=== PATIENT | male | born 1930 | race Caucasian/White ===

== ENCOUNTER 2016-06-02 05:55 | Inpatient (IN) | payer MEDICARE ==
[2016-06-02] VITALS (11 sets, daily range): BP systolic 153–220; BP diastolic 70–122; PULSE 67–101; RESP 16–18; TEMP 97.7–98.6; O2SAT 94–98
[~2016-06-02 05:55] MED LIST: 1-ME1LIQ OR; ASPI325T PO; CALC0.25 PO; DIPH25 PO; DONE10TA14; GABA100C4 PO; HYDR-3533 PO; HYDR50TA15 PO; LIPI80TA16 PO; NITR0.4S SL; OMEG100010; PROBCAP4 PO; SERT50 PO; TAMS0.4C67 PO; TRAM50TA PO; VITA10002 PO; [UNRECOGNIZED DRUG - CODE] SQ
--- NOTE | 2016-06-02 06:03 | PD ---
HPI Chief Complaint: coffee ground emesis Time Seen by Provider: 06:03 Travel History International Travel<30 days: No Contact w/Intl Traveler<30days: No Traveled to known affect area: No History of Present Illness HPI 86-year-old male came to the emergency room brought by EMS from intermediate for coffee-ground emesis. Patient has significant dementia. He is unable to give any kind of meaningful history. 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 Today he was noticed to be vomiting coffee- ground emesis. Patient has his eyes closed and responding to painful stimuli both verbal profanity. He was hypertensive upon arrival. He has jaiden on his anterior abdominal wall and ecchymosis on both arms from probably the IV. Patient is not able to give any meaningful history. But looks distressed. PFSH Past Medical History Narrative Medical List of his past medical history as reviewed from the nursing note. Arthritis: Yes (HANDS) Asthma: No Blood Disorders: No Heart Rhythm Problems: No Cancer: Yes (SKIN) Cardiovascular Problems: Yes (S/P MA--STENTS x1) High Cholesterol: No Chest Pain: No Congestive Heart Failure: No COPD: No Diabetes: Yes (borderline) Endocrine: Yes GERD: No Genitourinary: No Hepatitis: No Hiatal Hernia: No Hypertension: No Immune Disorder: No Kidney Stones: No Musculoskeletal: Yes (arthritis in the hands ) Neurologic: No Psychiatric: Yes (zoloft taken for anxiety depression) Reproductive: No Respiratory: No Myocardial Infarction: No Renal Failure: No Sleep Apnea: No Thyroid Disease: No Ulcer: No Past Surgical History Abdominal Surgery: Yes (LAP. VIKTORIA, APPY) AICD: No Appendectomy: No Body Medical Devices: x2 stents, right hip Cardiac Surgery: Yes (cardiac stent ) Cholecystectomy: Yes Ear Surgery: No Endocrine Surgery: No Eye Surgery: No Genitourinary Surgery: Yes (stent placed near the right kidney) Gynecologic Surgery: No Joint Replacement: Yes (RIGHT HIP) Oral Surgery: Yes (tonsillectomy) Pacemaker: No Thoracic Surgery: No Social History Alcohol Use: Yes (SOCIALLY / BEER) Tobacco Use: No Substance Use: No Allergies-Medications (Allergen,Severity, Reaction): Coded Allergies: Penicillin (Verified Allergy, Severe, 06/02/16) unknown reaction Dyazide (Verified Allergy, Unknown, UNKNOWN, 06/02/16) Uncoded Allergies: DYASIDE (Allergy, Intermediate, unknown, 05/21/15) Comments List of his allergies reviewed from the nursing note. Reported Meds & Prescriptions Reported Meds & Active Scripts Active Reported Labetalol (Labetalol HCl) 100 Mg Tab 100 Mg PO BID Hydralazine (Hydralazine HCl) 50 Mg Tab 100 Mg PO TID Take with a meal Gabapentin 300 Mg Cap 300 Mg PO TID Sertraline (Sertraline HCl) 50 Mg Tab 75 Mg PO DAILY Clonidine (Clonidine HCl) 0.1 Mg Tab 0.1 Mg PO BID Aspirin 81 (Aspirin) 81 Mg Tabdr 81 Mg PO DAILY Diphenhydramine HCl (Diphenhydramine HCl (Sleep)) 50 Mg Tab 25 Mg PO DAILY Primidone 50 Mg Tab 50 Mg PO BID Calcitriol 0.25 Mcg Cap 0.25 Mcg PO DAILY Amlodipine (Amlodipine Besylate) 5 Mg Tab 5 Mg PO DAILY Donepezil 10 Mg Tab 10 Mg PO HS Tamsulosin (Tamsulosin HCl) 0.4 Mg Cap 0.4 Mg PO HS Risperidone 0.25 Mg Tab 0.25 Mg PO Q12HR Atorvastatin (Atorvastatin Calcium) 20 Mg Tab 20 Mg PO HS Narrative Medication List of his home medications reviewed from the nursing note. Review of Systems Except as stated in HPI: all other systems reviewed are Neg Physical Exam Narrative GENERAL: Elderly, dementia, mostly noncommunicative SKIN: Warm and dry. Dry and flaky skin with ecchymosis mostly on both upper extremities. Postsurgical wound on the anterior abdominal wall with jaiden intact. Some redness but no discharge. HEAD: Atraumatic. Normocephalic. EYES: Pupils equal and round. No scleral icterus. No injection or drainage. ENT: No nasal bleeding or discharge. Mucous membranes pink and moist. NECK: Trachea midline. No JVD. CARDIOVASCULAR: Regular rate and rhythm. No murmur appreciated. RESPIRATORY: No accessory muscle use. Clear to auscultation. Breath sounds equal bilaterally. GASTROINTESTINAL: Abdomen is distended but soft, decreased bowel sounds, no guarding. Hepatic and splenic margins not palpable. MUSCULOSKELETAL: No obvious deformities. No clubbing. No cyanosis. No edema. NEUROLOGICAL: Dementia. GCS of 12. No obvious cranial nerve deficits. Motor grossly within normal limits. Mostly noncommunicative although responding to painful stimuli with verbal profanities PSYCHIATRIC: Unable to assess Data Data Last Documented VS Vital Signs Date Time Temp Pulse Resp B/P Pulse Ox O2 Delivery O2 Flow Rate FiO2 06/02/16 07:15 76 18 155/79 98 Nasal Cannula 2 06/02/16 05:59 98.2 Orders Complete Blood Count With Diff (06/02/16 06:39) Comprehensive Metabolic Panel (06/02/16 06:39) Lipase (06/02/16 06:39) Prothrombin Time / Inr (Pt) (06/02/16 06:39) Urinalysis - C+S If Indicated (06/02/16 06:39) Type And Screen (06/02/16 06:39) Ecg Monitoring (06/02/16 06:39) Iv Access Insert/Monitor (06/02/16 06:39) Oximetry (06/02/16 06:39) Sodium Chlor 0.9% 1000 Ml Inj (Ns 1000 M (06/02/16 06:39) Sodium Chloride 0.9% Flush (Ns Flush) (06/02/16 06:45) Pantoprazole Inj (Protonix Inj) (06/02/16 06:45) Pantoprazole Inj (Protonix Inj) (06/02/16 06:45) Ct Abd/Pel W/O Iv Contrast (06/02/16 ) Troponin I (06/02/16 06:54) Electrocardiogram (06/02/16 06:02) Admit Order (Ed Use Only) (06/02/16 08:31) Diet Npo (06/02/16 Breakfast) Vital Signs (Adult) NABEEL.Q4H (06/02/16 08:30) Hemoglobin (Hgb) (06/02/16 14:00) Hematocrit (Hct) (06/02/16 14:00) Hemoglobin (Hgb) (06/02/16 20:00) Hematocrit (Hct) (06/02/16 20:00) Hemoglobin (Hgb) (06/03/16 06:00) Hematocrit (Hct) (06/03/16 06:00) Basic Metabolic Panel (Bmp) (06/03/16 06:00) Sodium Chlor 0.9% 1000 Ml Inj (Ns 1000 M (06/02/16 08:30) Ondansetron Inj (Zofran Inj) (06/02/16 08:30) Amlodipine (Norvasc) (06/02/16 09:00) Donepezil (Aricept) (06/02/16 21:00) Gabapentin (Neurontin) (06/02/16 09:00) Oxycodone-Acetamin 5-325 Mg (Percocet (06/02/16 08:45) Primidone (Mysoline) (06/02/16 09:00) Risperidone (Risperdal) (06/02/16 09:00) Sertraline (Zoloft) (06/02/16 09:00) Tamsulosin (Flomax) (06/02/16 21:00) Labs Laboratory Tests Test 06/02/16 06:50 White Blood Count 7.4 TH/MM3 Red Blood Count 3.75 MIL/MM3 Hemoglobin 11.7 GM/DL Hematocrit 34.8 % Mean Corpuscular Volume 92.8 FL Mean Corpuscular Hemoglobin 31.1 PG Mean Corpuscular Hemoglobin 33.5 % Concent Red Cell Distribution Width 16.7 % Platelet Count 178 TH/MM3 Mean Platelet Volume 8.7 FL Neutrophils (%) (Auto) 89.5 % Lymphocytes (%) (Auto) 4.4 % Monocytes (%) (Auto) 4.1 % Eosinophils (%) (Auto) 1.3 % Basophils (%) (Auto) 0.7 % Neutrophils # (Auto) 6.6 TH/MM3 Lymphocytes # (Auto) 0.3 TH/MM3 Monocytes # (Auto) 0.3 TH/MM3 Eosinophils # (Auto) 0.1 TH/MM3 Basophils # (Auto) 0.1 TH/MM3 CBC Comment DIFF FINAL Differential Comment Prothrombin Time 11.4 SEC Prothromb Time International 1.0 RATIO Ratio Sodium Level 146 MEQ/L Potassium Level 3.8 MEQ/L Chloride Level 113 MEQ/L Carbon Dioxide Level 22.8 MEQ/L Anion Gap 10 MEQ/L Blood Urea Nitrogen 31 MG/DL Creatinine 2.09 MG/DL Estimat Glomerular Filtration 30 ML/MIN Rate Random Glucose 200 MG/DL Calcium Level 8.9 MG/DL Total Bilirubin 0.5 MG/DL Aspartate Amino Transf 26 U/L (AST/SGOT) Alanine Aminotransferase 21 U/L (ALT/SGPT) Alkaline Phosphatase 99 U/L Troponin I 0.19 NG/ML Total Protein 6.8 GM/DL Albumin 3.5 GM/DL Lipase 179 U/L Blood Type O NEGATIVE Antibody Screen NEGATIVE Blood Bank Comment MDM Medical Decision Making Medical Screen Exam Complete: Yes Emergency Medical Condition: Yes Medical Record Reviewed: Yes Interpretation(s) Twelve-lead EKG was reviewed by me. Normal sinus rhythm, left axis deviation, old anterior and inferior MA. Heart rate of 90 bpm. Differential Diagnosis GI bleed, peptic ulcer disease, stress ulcer Narrative Course 6:53 AM awaiting for the blood test results to come back. I waiting for the CAT scan to be done and resulted. In my opinion, this is upper GI bleed, probably as stress ulcer/gastritis for me hospitalization and recent surgery. I have started the patient on Protonix bolus and drip. Case will be signed over to the oncoming ER physician. Patient will require hospitalization eventually. Scripts Oxycodone-Acetaminophen 5-325 mg Tab1 Tab PO Q4H PRN (PAIN) #15 TAB Ref 0 Prov:Emanuel Pavon MD 06/04/16 Lui Kee MD Jun 02, 2016 06:03
[2016-06-02] MEDS ORDERED: DONE10TA7 PO (06:26)
[2016-06-02] MEDS ORDERED: LABE100T2 PO (06:26)
[2016-06-02] MEDS ORDERED: OXYC1TAB63 PO (06:26)
[2016-06-02] MEDS ORDERED: AMLO5TAB2 PO (06:26)
[2016-06-02] MEDS ORDERED: CLON0.1T PO (06:26)
[2016-06-02] MEDS ORDERED: TAMS0.4C4 PO (06:26)
[2016-06-02] MEDS ORDERED: DIPH50TA3 PO (06:26)
[2016-06-02] MEDS ORDERED: RISP0.252 PO (06:26)
[2016-06-02] MEDS ORDERED: ATOR20TA15 PO (06:26)
[2016-06-02] MEDS ORDERED: ASPI-110 PO (06:26)
[2016-06-02] MEDS ORDERED: SERT-132 PO (06:26)
[2016-06-02] MEDS ORDERED: CALC0.25 PO (06:26)
[2016-06-02] MEDS ORDERED: PRIM50TA5 PO (06:26)
[2016-06-02] MEDS ORDERED: HYDR50TA15 PO (06:26)
[2016-06-02] MEDS ORDERED: GABA300C5 PO (06:26)
[2016-06-02] MEDS ORDERED: SODIUM CHLOR 0.9% 1000 ML INJ 1,000 ML IV SCH (06:39)
[2016-06-02] MEDS ORDERED: SODIUM CHLORIDE 0.9% FLUSH 5 ML FLUSH IVF PRN (06:45)
[2016-06-02] MEDS ORDERED: PANTOPRAZOLE INJ 80 MG in SODIUM CHLORIDE 0.9% INJ 35 ML IV ONE (06:45)
[2016-06-02 07:18] LABS: AUTOMATED NEUTROPHIL # 6.6 TH/MM3 (1.8-7.7); BASOPHIL # 0.1 TH/MM3 (0-0.2); BASOPHIL % 0.7 % (0.0-2.0); EOSINOPHIL # 0.1 TH/MM3 (0-0.4); EOSINOPHIL % 1.3 % (0.0-4.0); HEMATOCRIT 34.8 % (39.0-51.0); HEMO FLAGS DIFF FINAL; LYMPH % 4.4 % (9.0-44.0); LYMPHOCYTE # 0.3 TH/MM3 (1.0-4.8); MEAN CELL VOLUME 92.8 FL (80.0-100.0); MEAN CORPUSCULAR HEMOGLOBIN 31.1 PG (27.0-34.0); MEAN CORPUSCULAR HGB CONC 33.5 % (32.0-36.0); MONO % 4.1 % (0.0-8.0); NEUT % 89.5 % (16.0-70.0); PLATELET COUNT 178 TH/MM3 (150-450); RED BLOOD COUNT 3.75 MIL/MM3 (4.50-5.90); RED CELL DISTRIBUTION WIDTH 16.7 % (11.6-17.2); WHITE BLOOD COUNT 7.4 TH/MM3 (4.0-11.0)
[2016-06-02 07:29] LABS: PROTHROMBIN TIME - PATIENT 11.4 SEC (9.8-11.6)
[2016-06-02 07:32] LABS: ALT (GPT) 21 U/L (12-78); ANION GAP 10 MEQ/L (5-15); AST (GOT) 26 U/L (15-37); BICARBONATE 22.8 MEQ/L (21.0-32.0); BLOOD UREA NITROGEN 31 MG/DL (7-18); CHLORIDE 113 MEQ/L (98-107); GLOMERULAR FILTRATION RATE 30 ML/MIN (>89); POTASSIUM 3.8 MEQ/L (3.5-5.1); SODIUM (NA) 146 MEQ/L (136-145)
[2016-06-02 07:34] LABS: ALKALINE PHOSPHATASE 99 U/L (45-117); TOTAL BILIRUBIN ADULT 0.5 MG/DL (0.2-1.0)
--- NOTE | 2016-06-02 07:41 | RADRPT ---
EXAM DATE/TIME: 06/02/2016 07:17 [place] COMPARISON: HIP RIGHT (AP & LAT), December 13, 2014, 14:56. INDICATIONS : Vomiting coffee ground emesis; status post hemicolectomy one week ago. ORAL CONTRAST: No oral contrast ingested. RADIATION DOSE: 12.32 CTDIvol (mGy) MEDICAL HISTORY : Cardiovascular disease. SURGICAL HISTORY : Cholecystectomy. Appendectomy. ENCOUNTER: Initial ACUITY: 1 day PAIN SCALE: Non-responsive LOCATION: abdomen. TECHNIQUE: Volumetric scanning of the abdomen and pelvis was performed. Using automated exposure control and ad justment of the mA and/or kV according to patient size, radiation dose was kept as low as reasonably achievable to obtain optimal diagnostic quality images. FINDINGS: Lung bases demonstrate small bilateral pleural effusions, larger on the right side with basilar atele ctasis. No pneumothorax. There is subcutaneous air in the lower left chest wall and the abdominal wall likely related to repor dada recent hemicolectomy one week ago. Surgical staple line seen in the right abdomen. There is also previous cholecystectomy. There is no evidence for bowel obstruction. There is mild constipation. No free air is present. There is mild anasarca. Trace free fluid in the abdomen. No significant abnormality in the liver, spleen, adrenals, right kidney or pancreas. Numerous exophyt ic cysts present in the left kidney with a dilated left renal pelvis. Left ureter otherwise has shani l caliber. Examination the pelvis reveals a inferior pubic ramus fracture which appears old. There is previous r ight hip replacement with protrusio acetabulum and some fragmentation of the acetabulum. This appears grossly similar to a previous right hip radiograph from November 2014. CONCLUSION: 1. Small hiatal hernia. No significant gastric distention. No bowel obstruction or free air. Mild con stipation. 2. Small bilateral pleural effusions. Basilar atelectasis. Mild anasarca. 3. 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 Old right inferior pubic ramus fracture. Findings similar to plain film from November 2014. Bones are osteopenic. Postoperative right hemicolectomy. Subcutaneous air in the left chest wall and left abdominal wall. Arthur Mixon MD on June 02, 2016 at 7:29 Board Certified Radiologist. This report was verified electronically.
[2016-06-02] MEDS: PANTOPRAZOLE INJ 80 MG in SODIUM CHLORIDE 0.9% INJ 100 ML IV SCH ×2 (07:55→17:22)
[2016-06-02] MEDS ORDERED: ONDANSETRON HCL 4 MG/2 ML VIAL IV PUSH PRN (08:30)
[2016-06-02] MEDS ORDERED: oxyCODONE/ACETAMINOPHEN 5 MG/325 MG TAB PO PRN (08:45)
[2016-06-02] MEDS: amLODIPine BESYLATE 5 MG TAB PO SCH (09:00)
[2016-06-02] MEDS: PRIMIDONE 50 MG TAB PO SCH ×2 (09:00→20:38)
[2016-06-02] MEDS: risperiDONE 0.25 MG TAB PO SCH ×2 (09:00→20:39)
[2016-06-02] MEDS: GABAPENTIN 300 MG CAP PO SCH ×3 (09:00→17:13)
[2016-06-02] MEDS: SERTRALINE HCL 50 MG TAB PO SCH (09:00)
[2016-06-02] MEDS ORDERED: PILL SPLITTER OTHER PRN (09:15)
[2016-06-02] MEDS: SODIUM CHLOR 0.9% 1000 ML INJ 1,000 ML IV SCH ×2 (10:39→21:50)
[2016-06-02 11:09] LABS: BACTERIA, URINE RARE /hpf; BLOOD, URINE NEG (NEG); COMMENT (UR) CULT NOT INDICATED; CULTURE IF INDICATED CULT NOT INDICATED; GLUCOSE,URINE 150 mg/dL (NEG); KETONE, URINE TRACE mg/dL (NEG); NITRITE,URINE NEG (NEG); URINE COLOR YELLOW (YELLW/STRAW)
--- NOTE | 2016-06-02 11:32 | HHI.HP ---
[facility] Angelica Rhodes DO Admission Diagnosis upper gi bleed Diagnoses: (1) GI bleed Diagnosis: Principal Chief Complaint: coffee-ground emesis Travel History International Travel<30 Days: No Contact w/Intl Traveler <30 Da: No Traveled to Known Affected Are: No History of Present Illness patient is a 86 y/o male with severe dementia- s/p recent colectomy was sent back to ER with coffee-ground emesis- information is limited due to severe dementia. at the time of my evaluation he was in no acute distress. opened the eyes to calling his name but otherwise couldn't get any further information. Review of Systems ROS Limitations: Poor Historian Past Family Social History Past Medical History hypertension dyslipidemia colon cancer? Past Surgical History recent colectomy Reported Medications Labetalol (Labetalol HCl) 100 Mg Tab 100 Mg PO BID Hydralazine (Hydralazine HCl) 50 Mg Tab 100 Mg PO TID Take with a meal Gabapentin 300 Mg Cap 300 Mg PO TID Sertraline (Sertraline HCl) 50 Mg Tab 75 Mg PO DAILY Clonidine (Clonidine HCl) 0.1 Mg Tab 0.1 Mg PO BID Aspirin 81 (Aspirin) 81 Mg Tabdr 81 Mg PO DAILY Diphenhydramine HCl (Diphenhydramine HCl (Sleep)) 50 Mg Tab 25 Mg PO DAILY Primidone 50 Mg Tab 50 Mg PO BID Calcitriol 0.25 Mcg Cap 0.25 Mcg PO DAILY Amlodipine (Amlodipine Besylate) 5 Mg Tab 5 Mg PO DAILY Donepezil 10 Mg Tab 10 Mg PO HS Tamsulosin (Tamsulosin HCl) 0.4 Mg Cap 0.4 Mg PO HS Oxycodone-Acetaminophen 5-325 mg Tab 1 Tab PO Q4H PRN Risperidone 0.25 Mg Tab 0.25 Mg PO Q12HR Atorvastatin (Atorvastatin Calcium) 20 Mg Tab 20 Mg PO HS Allergies: Coded Allergies: Penicillin (Verified Allergy, Severe, 06/02/16) unknown reaction Dyazide (Verified Allergy, Unknown, UNKNOWN, 06/02/16) Uncoded Allergies: DYASIDE (Allergy, Intermediate, unknown, 05/21/15) Active Ordered Medications Current Medications Sodium Chloride (NS 1000 ml Inj) 1,000 ml @ 1,000 mls/hr Q1H IV Last administered on 06/02/16 07:55; Start 06/02/16 at 06:39; Stop 06/02/16 at 07:38; Status DC IV Flush 2 ml 2 ml UNSCH PRN IVF FLUSH AFTER USING IV ACCESS; Start 06/02/16 at 06:45 Pantoprazole Sodium 80 mg/ Sodium Chloride 35 ml @ 420 mls/hr ONCE ONCE IV Last administered on 06/02/16 07:55; Start 06/02/16 at 06:45; Stop 06/02/16 at 06: 49; Status DC Pantoprazole Sodium 80 mg/ Sodium Chloride 100 ml @ 10 mls/hr Q10H IV Last administered on 06/02/16 07:55; Start 06/02/16 at 06:45 Sodium Chloride (NS 1000 ml Inj) 1,000 ml @ 75 mls/hr [id number] IV Last administered on 06/02/16 10:39; Start 06/02/16 at 08:30 Ondansetron HCl (Zofran Inj) 4 mg Q8HR PRN IV PUSH NAUSEA; Start 06/02/16 at 08: 30 Amlodipine Besylate (Norvasc) 5 mg DAILY PO ; Start 06/02/16 at 09:00 Donepezil HCl (Aricept) 10 mg HS PO ; Start 06/02/16 at 21:00 Gabapentin (Neurontin) 300 mg TID PO ; Start 06/02/16 at 09:00 Oxycodone/ Acetaminophen (Percocet 5-325 Mg) 1 tab Q4H PRN PO PAIN; Start 06/02 at 08:45 Primidone (Mysoline) 50 mg BID PO ; Start 06/02/16 at 09:00 Risperidone (risperDAL) 0.25 mg Q12HR PO ; Start 06/02/16 at 09:00 Sertraline HCl (Zoloft) 75 mg DAILY PO ; Start 06/02/16 at 09:00 Tamsulosin HCl (Flomax) 0.4 mg HS PO ; Start 06/02/16 at 21:00 Miscellaneous (Pill Splitter) 1 ea UNSCH PRN OTHER SEE LABEL COMMENTS; Start at 09:15 Family History could not be obtained. Social History [facility] resident. Physical Exam Vital Signs Vital Signs Date Time Temp Pulse Resp B/P Pulse Ox O2 Delivery O2 Flow Rate FiO2 06/02/16 11:09 98.6 70 16 198/91 98 Nasal Cannula 2 06/02/16 09:00 78 18 153/76 98 Nasal Cannula 2 06/02/16 07:15 76 18 155/79 98 Nasal Cannula 2 06/02/16 06:27 101 18 180/88 94 Room Air 06/02/16 05:59 98.2 101 18 220/122 95 Physical Exam GENERAL: elderly male, in no apparent distress. SKIN: No rashes, ecchymoses or lesions. Cool and dry. HEAD: Atraumatic. Normocephalic. No temporal or scalp tenderness. EYES: Pupils equal round and reactive. Extraocular motions intact. No scleral icterus. No injection or drainage. ENT: Nose without bleeding, purulent drainage or septal hematoma. Throat without erythema, tonsillar hypertrophy or exudate. Uvula midline. Airway patent. NECK: Trachea midline. No JVD or lymphadenopathy. Supple, nontender, no meningeal signs. CARDIOVASCULAR: Regular rate and rhythm without murmurs, gallops, or rubs. RESPIRATORY: Clear to auscultation. Breath sounds equal bilaterally. No wheezes , rales, or rhonchi. GASTROINTESTINAL: jaiden noted on the abdomen MUSCULOSKELETAL: Extremities without clubbing, cyanosis, or edema. No joint tenderness, effusion, or edema noted. No calf tenderness. Negative Homans sign bilaterally. NEUROLOGICAL: demented Laboratory Laboratory Tests Test 06/02/16 06/02/16 06:50 10:55 White Blood Count 7.4 Red Blood Count 3.75 Hemoglobin 11.7 Hematocrit 34.8 Mean Corpuscular Volume 92.8 Mean Corpuscular Hemoglobin 31.1 Mean Corpuscular Hemoglobin 33.5 Concent Red Cell Distribution Width 16.7 Platelet Count 178 Mean Platelet Volume 8.7 Neutrophils (%) (Auto) 89.5 Lymphocytes (%) (Auto) 4.4 Monocytes (%) (Auto) 4.1 Eosinophils (%) (Auto) 1.3 Basophils (%) (Auto) 0.7 Neutrophils # (Auto) 6.6 Lymphocytes # (Auto) 0.3 Monocytes # (Auto) 0.3 Eosinophils # (Auto) 0.1 Basophils # (Auto) 0.1 CBC Comment DIFF FINAL Differential Comment Prothrombin Time 11.4 Prothromb Time International 1.0 Ratio Sodium Level 146 Potassium Level 3.8 Chloride Level 113 Carbon Dioxide Level 22.8 Anion Gap 10 Blood Urea Nitrogen 31 Creatinine 2.09 Estimat Glomerular Filtration 30 Rate Random Glucose 200 Calcium Level 8.9 Total Bilirubin 0.5 Aspartate Amino Transf 26 (AST/SGOT) Alanine Aminotransferase 21 (ALT/SGPT) Alkaline Phosphatase 99 Troponin I 0.19 Total Protein 6.8 Albumin 3.5 Lipase 179 Blood Type O NEGATIVE Antibody Screen NEGATIVE Blood Bank Comment Urine Color YELLOW Urine Turbidity CLEAR Urine pH 6.0 Urine Specific [place] 1.011 Urine Protein 100 Urine Glucose (UA) 150 Urine Ketones TRACE Urine Occult Blood NEG Urine Nitrite NEG Urine Bilirubin NEG Urine Urobilinogen LESS THAN 2.0 Urine Leukocyte Esterase NEG Urine RBC LESS THAN 1 Urine WBC LESS THAN 1 Urine Bacteria RARE Microscopic Urinalysis Comment CULT NOT INDICATED Result Diagram: 06/02/16 0650 06/02/16 0650 Imaging Last Impressions Abdomen/Pelvis CT 06/02/16 0000 Signed Impressions: Service Date/Time: June 07:17 - CONCLUSION: 1. Small hiatal hernia. No significant gastric distention. No bowel obstruction or free air. Mild constipation. 2. Small bilateral pleural effusions. Basilar atelectasis. Mild anasarca. 3. 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 Old right inferior pubic ramus fracture. Findings similar to plain film from November 2014. Bones are osteopenic. Postoperative right hemicolectomy. Subcutaneous air in the left chest wall and left abdominal wall. rAthur Mixon MD Assessment and Plan Assessment and Plan A/P - GI bleed with recent colectomy keep NPO for now- start IV fluid- continue PPI. monitor H/H and transfuse as needed- GI consulted -elevated troponin- due to renal insufficiency- will check the trend- -hypertension; reportedly could not take the oral pills- will add vasotec as needed -renal insufficiency- chronic and at his baseline- will monitor -dementia- resume home meds if able to take -DVT prophylaxis with SCD's- no chemical prophylaxis due to GI bleed called the to discuss the code status and possible palliative care evaluation- no answer. Discussed Condition With the ER physician and the RN. Physician Certification 2 Midnight Certification Type: Admission for Inpatient Services Order for Inpatient Services The services are ordered in accordance with Medicare regulations or non- Medicare payer requirements, as applicable. In the case of services not specified as inpatient-only, they are appropriately provided as inpatient services in accordance with the 2-midnight benchmark. Estimated LOS (days): 2 days is the estimated time the patient will need to remain in the hospital, assuming treatment plan goals are met and no additional complications. Post-Hospital Plan: Not yet determined Problem Qualifiers (1) GI bleed: Qualified Code: K92.0 - Gastrointestinal hemorrhage with hematemesis Emanuel Pavon MD Jun 02, 2016 11:32
--- NOTE | 2016-06-02 11:46 | HHI.PR ---
Addendum To [facility] Progress Not Reason for addendum: Additonal documentation (d/w the in detail; will cancel GI consult and will consult palliative care- DNR status per my discussion with the .) Emanuel Pavon MD Jun 02, 2016 11:46
[2016-06-02] MEDS: ENALAPRILAT 1.25 MG/ML VIAL IV PUSH PRN (12:55)
--- NOTE | 2016-06-02 14:46 | PD.CONS ---
Consult Service Palliative Care Consult Requested By Dr. Pavon . Primary Care Physician Angelica Rhodes DO . Reason for Consultation a. To assist with evaluation and management of symptoms including: Agitation, confusion b. To assist medical decision maker(s) with: better understanding of current medical conditions; weighing benefits/burdens of medical treatment options; making medical treatment decisions. . HPI History of Present Illness This 86-year-old male, with a past history of dementia for 3 or 4 years, CAD/[place] , and a subtotal colectomy last month for colon cancer, was brought to the emergency department from his rehabilitation facility after he had hematemesis, coffee grounds emesis. The patient had been declining for the past year to year and a half with some gradually worsening weakness, and he had a fall in 2014 that resulted in a pelvis fracture. He had a colonoscopy 2 or 3 months ago and was found to have a colon mass/neoplasm, and he was taken to [facility] last month for surgery. He was discharged to the rehabilitation facility 2 days ago, but then developed this hematemesis and was brought to the emergency department. In the emergency department, findings included: * Confusion, intermittent agitation * Temp 98.2, pulse 101, respirations 18, blood pressure 180/88, oxygen saturation 94% on room air * White count 7.4, hemoglobin 11.7 * Sodium 146, creatinine 2.09, albumin 3.5 * CT of abdomen/pelvis indicated some small pleural effusions but no other acute findings. The patient had been evaluated by [facility] to 3 months ago, and the patient's did not feel she was "ready for that yet." The patient was provided Protonix and IV fluids, and was admitted to the medical floor. He remains quite confused, and intermittently has agitation and yells out. He does not appear to be in pain while he is resting in the bed. Dr. Pavon discussed with the patient's his condition, and she elected to initiate a DNR. Her goal is to get him stable enough here so he can return to rehabilitation and then hopefully get back home. Palliative Care was consulted to assist with symptom management, and to discuss with the the current condition, prognosis, and the benefits and burdens of the various treatment options. . Function/Cognitive Trajectory Prior to his admission to [facility] last month, the patient was able to get up and walk several steps with his walker at home. He was always confused, and he had occasional agitated outbursts at home. . Review of Systems ROS Limitations: Altered Mental Status (confused from dementia) Constitutional: DENIES: Weight loss Endocrine: DENIES: Polyuria Eyes: DENIES: Eye inflammation Ears, nose, mouth, throat: DENIES: Epistaxis Respiratory: DENIES: Cough, Shortness of breath Cardiovascular: DENIES: Syncope, Lower Extremity Edema Gastrointestinal: COMPLAINS OF: Vomiting, Vomiting blood, DENIES: Bloody stools, Diarrhea Genitourinary: DENIES: Hematuria Musculoskeletal: DENIES: Joint Swelling Integumentary: DENIES: Rash Hematologic/Lymphatics: DENIES: Bruising Immunologic/Allergic: DENIES: Urticaria Neurologic: DENIES: Localized weakness, Seizures Psychiatric: COMPLAINS OF: Confusion, Agitation Past Family Social History Coded Allergies: Penicillin (Verified Allergy, Severe, 06/02/16) unknown reaction Dyazide (Verified Allergy, Unknown, UNKNOWN, 06/02/16) Uncoded Allergies: DYASIDE (Allergy, Intermediate, unknown, 05/21/15) Past Medical History * Hematemesis, GI bleeding * Colon cancer, subtotal colectomy May 2016 * CAD, history of [place] 2008 * Chronic kidney disease, possible [place] I * Hypertension * Diabetes * Skin cancer * Depression * Hyperlipidemia . Past Surgical History * Subtotal colectomy for cancer in May 2016 * Right hip * Dupuytren's contractures * Cholecystectomy * Tonsillectomy * Stent right kidney . Reported Medications Labetalol (Labetalol HCl) 100 Mg Tab 100 Mg PO BID Hydralazine (Hydralazine HCl) 50 Mg Tab 100 Mg PO TID Gabapentin 300 Mg Cap 300 Mg PO TID Sertraline (Sertraline HCl) 50 Mg Tab 75 Mg PO DAILY Clonidine (Clonidine HCl) 0.1 Mg Tab 0.1 Mg PO BID Aspirin 81 (Aspirin) 81 Mg Tabdr 81 Mg PO DAILY Diphenhydramine HCl (Diphenhydramine HCl (Sleep)) 50 Mg Tab 25 Mg PO DAILY Primidone 50 Mg Tab 50 Mg PO BID Calcitriol 0.25 Mcg Cap 0.25 Mcg PO DAILY Amlodipine (Amlodipine Besylate) 5 Mg Tab 5 Mg PO DAILY Donepezil 10 Mg Tab 10 Mg PO HS Tamsulosin (Tamsulosin HCl) 0.4 Mg Cap 0.4 Mg PO HS Oxycodone-Acetaminophen 5-325 mg Tab 1 Tab PO Q4H PRN Risperidone 0.25 Mg Tab 0.25 Mg PO Q12HR Atorvastatin (Atorvastatin Calcium) 20 Mg Tab 20 Mg PO HS . Current Medications Medications (Trade) Dose Ordered Sig/Rebecca Route Start Time Stop Time Status Last Admin IV Flush 2 ml 2 ml UNSCH PRN IVF 06/02/16 06:45 Pantoprazole Sodium 80 mg/ Sodium Chloride 100 ml @ 10 mls/hr Q10H IV 06/02/16 06:45 06/02/16 07:55 (NS 1000 ml Inj) 1,000 ml @ 75 mls/hr [id number] IV 06/02/16 08:30 06/02/16 10:39 (Zofran Inj) 4 mg Q8HR PRN IV PUSH 06/02/16 08:30 (Norvasc) 5 mg DAILY PO 06/02/16 09:00 (Aricept) 10 mg HS PO 06/02/16 21:00 (Neurontin) 300 mg TID PO 06/02/16 09:00 (Percocet 5-325 Mg) 1 tab Q4H PRN PO 06/02/16 08:45 (Mysoline) 50 mg BID PO 06/02/16 09:00 (risperDAL) 0.25 mg Q12HR PO 06/02/16 09:00 (Zoloft) 75 mg DAILY PO 06/02/16 09:00 (Flomax) 0.4 mg HS PO 06/02/16 21:00 (Pill Splitter) 1 ea UNSCH PRN OTHER 06/02/16 09:15 (Vasotec Inj) 1.25 mg Q8H PRN IV PUSH 06/02/16 11:30 06/02/16 12:55 Family History Positive for heart disease. Parental deaths unknown cause. . Substance Use Tobacco: None. Alcohol: None. Prescription med abuse: None. Illicits: None. . Psychosocial History The patient was born and raised in [place], but moved to [place] more than 50 years ago. 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 He has been once, currently for 29 years. He has no children. He lives at home with his , but the couple days prior to this admission had been at the rehabilitation facility after his colon surgery last month. . Spiritual/Cultural Factors The patient is Zoroastrian, and was connected with a local Zoroastrian buddhist until his health began failing more about 1.5 years ago. The patient's would like a commercial loan administrator to come visit the patient. . Living Will: Completed, but not made available Family/friends goals: The patient's is hoping that he will stabilize quickly here and be able to get back to his rehab center where he can receive therapy and hopefully get strong enough to return back home to live with her. If the patient declines, the patient's is open to hospice services, and she certainly would not want him resuscitated or on life support. . Ethical and Legal Issues The patient lacks capacity for decision making, and he will not regain that capacity. His is the proxy decision-maker. There are no ethical issues that would impact his care or decision-making at this time. . Physical Exam Vital Signs Date Time Temp Pulse Resp B/P Pulse Ox O2 Delivery O2 Flow Rate FiO2 06/02/16 13:56 166/94 06/02/16 13:38 97.7 84 18 196/91 95 06/02/16 12:54 67 16 201/90 98 Nasal Cannula 2 06/02/16 11:53 73 16 171/75 98 Nasal Cannula 2 06/02/16 11:09 98.6 70 16 198/91 98 Nasal Cannula 2 06/02/16 09:00 78 18 153/76 98 Nasal Cannula 2 06/02/16 07:15 76 18 155/79 98 Nasal Cannula 2 06/02/16 06:27 101 18 180/88 94 Room Air 06/02/16 05:59 98.2 101 18 220/122 95 Exam CONSTITUTIONAL/GENERAL: This is a thin, elderly patient, in no apparent distress. Intermittently agitated and yelling out TUBES/LINES/DRAINS: Peripheral IV SKIN: No jaundice, rashes, or lesions. Ecchymoses on upper extremities. No wounds seen anteriorly. Skin temperature appropriate. Not diaphoretic. HEAD: Atraumatic. Normocephalic. EYES: Pupils equal and round and reactive. Extraocular motions intact. No scleral icterus. No injection or drainage. Fundi not examined. ENT: Hearing grossly normal. Nose without bleeding or purulent drainage. Throat without visible erythema, exudates, masses, or lesions. NECK: Trachea midline. Supple, nontender. No palpable thyroid enlargement or nodularity. CARDIOVASCULAR: Regular rate and rhythm without murmurs, gallops, or rubs. No JVD. Peripheral pulses symmetric. RESPIRATORY/CHEST: Symmetric, unlabored respirations. Clear to auscultation. Breath sounds equal bilaterally. No wheezes, rales, or rhonchi. GASTROINTESTINAL: Abdomen soft, non-tender, nondistended. No hepato-splenomegaly , or palpable masses. No guarding. Bowel sounds present. GENITOURINARY: Without palpable bladder distension. MUSCULOSKELETAL: Extremities without clubbing, cyanosis, or edema. No joint tenderness or effusion noted. No calf tenderness. No mottling or clubbing. LYMPHATICS: No palpable cervical or supraclavicular adenopathy. NEUROLOGICAL: Awake and alert. Confused about place, date, year, person. He does not believe he is . PSYCHIATRIC: Intermittent agitation . Diagnostic Tests Laboratory Laboratory Tests Test 06/02/16 06/02/16 06:50 10:55 White Blood Count 7.4 TH/MM3 (4.0-11.0) Red Blood Count 3.75 MIL/MM3 (4.50-5.90) Hemoglobin 11.7 GM/DL (13.0-17.0) Hematocrit 34.8 % (39.0-51.0) Mean Corpuscular Volume 92.8 FL (80.0-100.0) Mean Corpuscular Hemoglobin 31.1 PG (27.0-34.0) Mean Corpuscular Hemoglobin 33.5 % Concent (32.0-36.0) Red Cell Distribution Width 16.7 % (11.6-17.2) Platelet Count 178 TH/MM3 (150-450) Mean Platelet Volume 8.7 FL (7.0-11.0) Neutrophils (%) (Auto) 89.5 % (16.0-70.0) Lymphocytes (%) (Auto) 4.4 % (9.0-44.0) Monocytes (%) (Auto) 4.1 % (0.0-8.0) Eosinophils (%) (Auto) 1.3 % (0.0-4.0) Basophils (%) (Auto) 0.7 % (0.0-2.0) Neutrophils # (Auto) 6.6 TH/MM3 (1.8-7.7) Lymphocytes # (Auto) 0.3 TH/MM3 (1.0-4.8) Monocytes # (Auto) 0.3 TH/MM3 (0-0.9) Eosinophils # (Auto) 0.1 TH/MM3 (0-0.4) Basophils # (Auto) 0.1 TH/MM3 (0-0.2) CBC Comment DIFF FINAL Differential Comment Prothrombin Time 11.4 SEC (9.8-11.6) Prothromb Time International 1.0 RATIO Ratio Sodium Level 146 MEQ/L (136-145) Potassium Level 3.8 MEQ/L (3.5-5.1) Chloride Level 113 MEQ/L (98-107) Carbon Dioxide Level 22.8 MEQ/L (21.0-32.0) Anion Gap 10 MEQ/L (5-15) Blood Urea Nitrogen 31 MG/DL (7-18) Creatinine 2.09 MG/DL (0.60-1.30) Estimat Glomerular Filtration 30 ML/MIN (>89) Rate Random Glucose 200 MG/DL (74-106) Calcium Level 8.9 MG/DL (8.5-10.1) Total Bilirubin 0.5 MG/DL (0.2-1.0) Aspartate Amino Transf 26 U/L (15-37) (AST/SGOT) Alanine Aminotransferase 21 U/L (12-78) (ALT/SGPT) Alkaline Phosphatase 99 U/L (45-117) Troponin I 0.19 NG/ML (0.02-0.05) Total Protein 6.8 GM/DL (6.4-8.2) Albumin 3.5 GM/DL (3.4-5.0) Lipase 179 U/L (73-393) Blood Type O NEGATIVE Antibody Screen NEGATIVE Blood Bank Comment Urine Color YELLOW (YELLW/STRAW) Urine Turbidity CLEAR (CLEAR) Urine pH 6.0 (5.0-8.5) Urine Specific [place] 1.011 (1.002-1.035) Urine Protein 100 mg/dL (NEG-TRACE) Urine Glucose (UA) 150 mg/dL (NEG) Urine Ketones TRACE mg/dL (NEG) Urine Occult Blood NEG (NEG) Urine Nitrite NEG (NEG) Urine Bilirubin NEG (NEG) Urine Urobilinogen LESS THAN 2.0 MG/DL (LESS THAN 2.0) Urine Leukocyte Esterase NEG (NEG) Urine RBC LESS THAN 1 /hpf (0-3) Urine WBC LESS THAN 1 /hpf (0-5) Urine Bacteria RARE /hpf (NONE) Microscopic Urinalysis Comment CULT NOT INDICATED Result Diagram: 06/02/16 0650 06/02/16 0650 Imaging Last Impressions Abdomen/Pelvis CT 06/02/16 0000 Signed Impressions: Service Date/Time: June 07:17 - CONCLUSION: 1. Small hiatal hernia. No significant gastric distention. No bowel obstruction or free air. Mild constipation. 2. Small bilateral pleural effusions. Basilar atelectasis. Mild anasarca. 3. 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 Old right inferior pubic ramus fracture. Findings similar to plain film from November 2014. Bones are osteopenic. Postoperative right hemicolectomy. Subcutaneous air in the left chest wall and left abdominal wall. Arthur Mixon MD Patient/Family Conference Present at Family Conference: Patient's Jacquie via telephone . Family Conference Time (mins): 31 Family Conference Location: Telephone Issues Discussed: * Palliative care role, purpose, approach * Hospice care role, purpose, approach * Additional medical, psychosocial, and spiritual history * Patients general health, functional status, and cognitive changes in the months leading up to the current hospitalization * Patient/family understanding of the current medical problems * Patient/family understanding of prognosis * Patients goals of care as best understood from advance directives and/or conversations and/or values * Current medical treatment options and benefits/burdens of those options * Likely scenarios comparing ongoing aggressive care with a transition to comfort measures only * Questions answered to the best of my ability * Palliative care contact information provided The patient's is hoping that he will stabilize quickly here and be able to get back to his rehab center where he can receive therapy and hopefully get strong enough to return back home to live with her. If the patient declines, the patient's is open to hospice services, and she certainly would not want him resuscitated or on life support. . Assessment and Plan Disease Oriented Problem List: (1) hematemesis, GI bleeding (2) colon cancer, subtotal colectomy May 2016 (3) chronic kidney disease, possible [place] (4) diabetes (5) depression (6) hypertension (7) hyperlipidemia (8) CAD, history of [place] 2009 (9) skin Cancers Symptom Scale: (1) agitation 0-10 Scale: 3 (intermittent yelling out) (2) vomiting 0-10 Scale: 0 (seems to have subsided) Pertinent Non-Medical Issues Psychosocial: Spiritual: The patient is Zoroastrian, and was connected with a local Zoroastrian buddhist until his health began failing more about 1.5 years ago. The patient's would like a commercial loan administrator to come visit the patient Legal: The patient lacks capacity for decision making, and he will not regain that capacity. His is the proxy decision-maker. Ethical issues impacting care: Important Contacts : Jacquie Johnson . Prognosis The patient has moderately severe dementia, though not end-stage by definition. He has recently undergone colon surgery and now is admitted again for hematemesis, and obviously has lost considerable strength due to the 2 hospitalizations and his advanced age. He has been declining for the past year or so, with a little weight loss and worsening weakness and confusion. I believe he would be eligible for hospice services if/when the goals transition to comfort only. . Code Status: No Code Plan * DO NOT RESUSCITATE * DECISION-MAKING: The patient lacks capacity for decision making, and he will not regain that capacity. His is the proxy decision-maker. * GOALS: The patient's is hoping that he will stabilize quickly here and be able to get back to his rehab center where he can receive therapy and hopefully get strong enough to return back home to live with her. If the patient declines, the patient's is open to hospice services, and she certainly would not want him resuscitated or on life support. * SYMPTOMS: The patient's agitation seems to be brief and intermittent. If it worsens, Haldol will likely be useful. He does not appear to be in pain at this time. * The patient's does want to proceed with GI workup if it is needed, including EGD if recommended by the disease management nurse. She is hoping he will then stabilize and be able to get back to the rehab center, hoping he can again become ambulatory and return home. * Palliative Care will continue to follow the patient during this hospitalization. . Time Spent Total Floor Time (mins): 79 Face to Face Time (mins): 41 >50% Counseling/Coord of Care: Yes Thank you for the opportunity to participate in the care of Mr. Johnson. Attestation To help prompt me to consider important information that might be impacting today's encounter and assessment, information from prior notes written by myself or my colleagues may have been "brought forward" into today's note. My signature on this note, however, is an attestation that I personally performed the exam, history, and/or decision-making noted today, and, unless otherwise indicated, the interactions with patient, family, and staff as well as the review of records all occurred today. I also attest that the listed assessment and stated plan reflect my best clinical judgment today based on the combination of historical information, prior notes, and today's exam/ interactions. When time spent is documented, it refers only to time spent today by the signer, or if indicated, combined time spent today by collaborating physician/nurse practitioner. Tamara Daugherty MD Jun 02, 2016 14:46
[2016-06-02 20:12] LABS: HEMATOCRIT 29.4 % (39.0-51.0)
[2016-06-02] MEDS ORDERED: HALOPERIDOL LACTATE 5 MG/ML AMP IM ONE (20:15)
[2016-06-02] MEDS: TAMSULOSIN HCL 0.4 MG CAP PO SCH (20:39)
[2016-06-02] MEDS: DONEPEZIL HCL 5 MG TAB PO SCH (20:39)
[2016-06-03] MEDS: PANTOPRAZOLE INJ 80 MG in SODIUM CHLORIDE 0.9% INJ 100 ML IV SCH ×3 (03:04→22:45)
[2016-06-03 05:16] VITALS: BP 170/79; PULSE 64; RESP 20; TEMP 98.2; O2SAT 92
--- NOTE | 2016-06-03 06:52 | EKG ---
Date Performed: 06/02/2016 Time Performed: 06:02:04 PTAGE: 86 years EKG: Sinus rhythm WITH OCCASIONAL SUPRAVENTRICULAR PREMATURE COMPLEXES MARKED LEFT AXIS DEVIATION LOW QRS VOLTAGE IN E XTREMITY LEADS INFERIOR MYOCARDIAL INFARCTION ANTEROLATERAL MYOCARDIAL INFARCTION ABNORMAL ECG PREVIOUS TRACING : 12/13/2014 14.42 Compared to prior tracing no significant change DOCTOR: Benjy Marrero Interpretating Date/Time 06/03/2016 06:48:58
[2016-06-03 08:00] VITALS: BP 156/71; PULSE 84; RESP 20; TEMP 97.6; O2SAT 96
--- NOTE | 2016-06-03 09:30 | HHI.PR ---
Subjective Remarks in no distress. denies pain. H/H fairly stable. Objective Vitals Vital Signs Date Time Temp Pulse Resp B/P Pulse Ox O2 Delivery O2 Flow Rate FiO2 06/03/16 08:00 97.6 84 20 156/71 96 06/03/16 05:16 98.2 64 20 170/79 92 06/02/16 17:21 163/70 06/02/16 16:21 97.7 70 18 186/90 97 06/02/16 13:56 166/94 06/02/16 13:38 97.7 84 18 196/91 95 06/02/16 12:54 67 16 201/90 98 Nasal Cannula 2 06/02/16 11:53 73 16 171/75 98 Nasal Cannula 2 06/02/16 11:09 98.6 70 16 198/91 98 Nasal Cannula 2 I/O 06/02/16 06/02/16 06/02/16 06/03/16 06/03/16 06/03/16 07:00 15:00 23:00 07:00 15:00 23:00 Output Total 400 ml Balance -400 ml Output Urine Total 400 ml # Voids 1 Result Diagram: 06/03/16 0235 06/02/16 0650 Imaging Last Impressions Abdomen/Pelvis CT 06/02/16 0000 Signed Impressions: Service Date/Time: June 07:17 - CONCLUSION: 1. Small hiatal hernia. No significant gastric distention. No bowel obstruction or free air. Mild constipation. 2. Small bilateral pleural effusions. Basilar atelectasis. Mild anasarca. 3. 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 Old right inferior pubic ramus fracture. Findings similar to plain film from November 2014. Bones are osteopenic. Postoperative right hemicolectomy. Subcutaneous air in the left chest wall and left abdominal wall. Arthur Mixon MD Objective Remarks GENERAL:elderly male, in no apparent distress. CARDIOVASCULAR: Regular rate and regular rhythm without murmurs, gallops, or rubs. RESPIRATORY: Clear to auscultation. Breath sounds equal bilaterally. No wheezes , rales, or rhonchi. GASTROINTESTINAL: Abdomen soft, non-tender, nondistended. Normal, active bowel sounds- jaiden in place. MUSCULOSKELETAL: Extremities without clubbing, cyanosis, or edema. NEURO: demented Procedures none Medications and IVs Current Medications Sodium Chloride (NS 1000 ml Inj) 1,000 ml @ 1,000 mls/hr Q1H IV Last administered on 06/02/16 07:55; Start 06/02/16 at 06:39; Stop 06/02/16 at 07:38; Status DC IV Flush 2 ml 2 ml UNSCH PRN IVF FLUSH AFTER USING IV ACCESS; Start 06/02/16 at 06:45 Pantoprazole Sodium 80 mg/ Sodium Chloride 35 ml @ 420 mls/hr ONCE ONCE IV Last administered on 06/02/16 07:55; Start 06/02/16 at 06:45; Stop 06/02/16 at 06: 49; Status DC Pantoprazole Sodium 80 mg/ Sodium Chloride 100 ml @ 10 mls/hr Q10H IV Last administered on 06/03/16 03:04; Start 06/02/16 at 06:45 Sodium Chloride (NS 1000 ml Inj) 1,000 ml @ 75 mls/hr [id number] IV Last administered on 06/02/16 21:50; Start 06/02/16 at 08:30 Ondansetron HCl (Zofran Inj) 4 mg Q8HR PRN IV PUSH NAUSEA; Start 06/02/16 at 08: 30 Amlodipine Besylate (Norvasc) 5 mg DAILY PO ; Start 06/02/16 at 09:00 Donepezil HCl (Aricept) 10 mg HS PO Last administered on 06/02/16 20:39; Start 06/02/16 at 21:00 Gabapentin (Neurontin) 300 mg TID PO ; Start 06/02/16 at 09:00 Oxycodone/ Acetaminophen (Percocet 5-325 Mg) 1 tab Q4H PRN PO PAIN; Start 06/02 at 08:45 Primidone (Mysoline) 50 mg BID PO Last administered on 06/02/16 20:38; Start at 09:00 Risperidone (risperDAL) 0.25 mg Q12HR PO Last administered on 06/02/16 20:39; Start 06/02/16 at 09:00 Sertraline HCl (Zoloft) 75 mg DAILY PO ; Start 2/2/17 at 09:00 Tamsulosin HCl (Flomax) 0.4 mg HS PO Last administered on 06/02/16 20:39; Start 06/02/16 at 21:00 Miscellaneous (Pill Splitter) 1 ea UNSCH PRN OTHER SEE LABEL COMMENTS; Start at 09:15 Enalaprilat (Vasotec Inj) 1.25 mg Q8H PRN IV PUSH SBP>180, DBP>110 Last administered on 06/03/16 00:00; Start 06/02/16 at 11:30 Haloperidol Lactate (Haldol Inj) 2 mg ONCE ONCE IM Last administered on 20:37; Start 06/02/16 at 20:15; Stop 06/02/16 at 20:17; Status DC A/P Assessment and Plan A/P - GI bleed with recent colectomy keep NPO for now- continue IV fluid- continue PPI. monitor H/H and transfuse as needed- GI consulted -mildly elevated troponin-trend stable- likely due to renal insufficiency- resume aspirin when ok with GI. -hypertension; will gradually resume home meds- vasotec as needed -renal insufficiency- chronic and at his baseline- will monitor -dementia- resume home meds soon -DVT prophylaxis with SCD's- no chemical prophylaxis due to GI bleed -DNR status per my discussion with the -palliative care consult appreciated. Discharge Planning pending GI evaluation. Emanuel Pavon MD Jun 03, 2016 09:30
[2016-06-03 09:52] LABS: HEMATOCRIT 28.2 % (39.0-51.0)
[2016-06-03 10:18] LABS: BICARBONATE 22.9 MEQ/L (21.0-32.0); POTASSIUM 3.2 MEQ/L (3.5-5.1)
[2016-06-03] MEDS: GABAPENTIN 300 MG CAP PO SCH ×3 (10:56→17:55)
[2016-06-03] MEDS: amLODIPine BESYLATE 5 MG TAB PO SCH (10:56)
[2016-06-03] MEDS: PRIMIDONE 50 MG TAB PO SCH ×2 (10:57→21:00)
[2016-06-03] MEDS: risperiDONE 0.25 MG TAB PO SCH ×2 (10:57→21:00)
[2016-06-03] MEDS: SERTRALINE HCL 50 MG TAB PO SCH (10:57)
[2016-06-03] MEDS: SODIUM CHLOR 0.9% 1000 ML INJ 1,000 ML IV SCH (11:01)
--- NOTE | 2016-06-03 11:40 | PD.CONS ---
HPI History of Present Illness This 86-year-old male with a past history of dementia, CAD/IL, and a subtotal colectomy last month for colon cancer, who was brought to the ER from a local nursing facility for hematemesis with coffee grounds emesis. He is unable to provide any history and therefore the history has been obtained from the EMR. The patient had been declining for the past year to year and a half with some gradually worsening weakness and was recently found to have colon cancer by colonoscopy about 2-3 months ago. He was admitted to [facility] last month for a subtotal colectomy. He was discharged to the rehabilitation center a few days ago, but became more confused, agitated, and started having coffee ground emesis. He was brought to the ER for further evaluation. Initially, the was not sure if she wanted to pursue aggressive workup. She met with the palliative care team yesterday and she has decided that she would like to proceed with GI workup, as she is hoping that he can get strong enough to return to the rehab center so he can get therapy, become ambulatory, and return home. Called and spoke to Jacquie Johnson regarding endoscopy - procedure, risks, benefits and she would like to proceed. She feels like he has been having frequent reflux symptoms prior to the hematemesis. The patient is unable to provide any details. (Renea Briceno) PFSH Past Medical History Colon cancer, subtotal colectomy May 2016 CAD, history of [place] 2008 Chronic kidney disease Hypertension Diabetes Skin cancer Depression Hyperlipidemia Past Surgical History Subtotal colectomy for cancer in May 2016 Right hip Dupuytren's contractures Cholecystectomy Tonsillectomy Stent right kidney (Renea Briceno) Coded Allergies: Penicillin (Verified Allergy, Severe, 06/02/16) unknown reaction Dyazide (Verified Allergy, Unknown, UNKNOWN, 06/02/16) Uncoded Allergies: DYASIDE (Allergy, Intermediate, unknown, 05/21/15) Medications Allergies Coded Allergies Type Severity Reaction Last Updated Verified Penicillin Allergy Severe 06/02/16 Yes Dyazide Allergy Unknown UNKNOWN 06/02/16 Yes Uncoded Allergies Type Severity Reaction Last Updated Verified DYASIDE Allergy Intermediate unknown 05/21/15 Active Scripts Medications Dose Route/Sig Days Date Category Dose Instructions Labetalol (Labetalol HCl) 100 Mg Tab 100 Mg PO BID 06/02/16 Reported Hydralazine (Hydralazine HCl) 50 Mg Tab 100 Mg PO TID 06/02/16 Reported Take with a meal Gabapentin 300 Mg Cap 300 Mg PO TID 06/02/16 Reported Sertraline (Sertraline HCl) 50 Mg Tab 75 Mg PO DAILY 06/02/16 Reported Clonidine (Clonidine HCl) 0.1 Mg Tab 0.1 Mg PO BID 06/02/16 Reported Aspirin 81 (Aspirin) 81 Mg Tabdr 81 Mg PO DAILY 06/02/16 Reported Diphenhydramine HCl (Diphenhydramine HCl (Sleep)) 50 Mg Tab 25 Mg PO DAILY 06/02/16 Reported Primidone 50 Mg Tab 50 Mg PO BID 06/02/16 Reported Calcitriol 0.25 Mcg Cap 0.25 Mcg PO DAILY 06/02/16 Reported Amlodipine (Amlodipine Besylate) 5 Mg Tab 5 Mg PO DAILY 06/02/16 Reported Donepezil 10 Mg Tab 10 Mg PO HS 06/02/16 Reported Tamsulosin (Tamsulosin HCl) 0.4 Mg Cap 0.4 Mg PO HS 06/02/16 Reported Oxycodone-Acetaminophen 5-325 mg Tab 1 Tab PO Q4H PRN 06/02/16 Reported Risperidone 0.25 Mg Tab 0.25 Mg PO Q12HR 06/02/16 Reported Atorvastatin (Atorvastatin Calcium) 20 Mg Tab 20 Mg PO HS 06/02/16 Reported Family History Positive for heart disease. Parental deaths unknown cause. Social History Resides at a local nursing facility for rehab (Renea Briceno) Review of Systems ROS Unable to obtain from patient (Renea Briceno) GI Exam Vitals I&O Vital Signs Date Time Temp Pulse Resp B/P Pulse Ox O2 Delivery O2 Flow Rate FiO2 06/03/16 08:00 97.6 84 20 156/71 96 06/03/16 05:16 98.2 64 20 170/79 92 06/02/16 17:21 163/70 06/02/16 16:21 97.7 70 18 186/90 97 06/02/16 13:56 166/94 06/02/16 13:38 97.7 84 18 196/91 95 06/02/16 12:54 67 16 201/90 98 Nasal Cannula 2 06/02/16 11:53 73 16 171/75 98 Nasal Cannula 2 I/O 06/02/16 06/02/16 06/02/16 06/03/16 06/03/16 06/03/16 07:00 15:00 23:00 07:00 15:00 23:00 Output Total 400 ml Balance -400 ml Output Urine Total 400 ml # Voids 1 Imaging Last Impressions Abdomen/Pelvis CT 06/02/16 0000 Signed Impressions: Service Date/Time: June 07:17 - CONCLUSION: 1. Small hiatal hernia. No significant gastric distention. No bowel obstruction or free air. Mild constipation. 2. Small bilateral pleural effusions. Basilar atelectasis. Mild anasarca. 3. 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 Old right inferior pubic ramus fracture. Findings similar to plain film from November 2014. Bones are osteopenic. Postoperative right hemicolectomy. Subcutaneous air in the left chest wall and left abdominal wall. Arthur Mixon MD Laboratory Test 06/02/16 06/03/16 06/03/16 06/03/16 19:02 02:35 09:25 09:26 Hemoglobin 9.9 GM/DL 9.2 GM/DL 9.5 GM/DL Hematocrit 29.4 % 27.0 % 28.2 % Troponin I 0.19 NG/ML 0.16 NG/ML Sodium Level 148 MEQ/L Potassium Level 3.2 MEQ/L Chloride Level 116 MEQ/L Carbon Dioxide Level 22.9 MEQ/L Anion Gap 9 MEQ/L Blood Urea Nitrogen 30 MG/DL Creatinine 2.05 MG/DL Estimat Glomerular Filtration 31 ML/MIN Rate Random Glucose 138 MG/DL Calcium Level 8.2 MG/DL Physical Examination HEENT: Normocephalic; atraumatic; no jaundice. CHEST: CTA, diminished CARDIAC: RRR ABDOMEN: Soft, nondistended, nontender; no hepatosplenomegaly; bowel sounds are present in all four quadrants. EXTREMITIES: No clubbing, cyanosis, or edema. SKIN: BUE ecchymotic. RECREATION SUPERVISOR: Lethargic/confused (Renea Briceno) Assessment and Plan Plan ASSESSMENT: - Upper GI Bleed, Coffee ground emesis. Pt sent from rehab center for hematemesis. initially was unsure if she wanted GI workup but after meeting with palliative care has decided to pursue endoscopic evaluation, as she is hoping to get him strong enough to get therapy at rehab, become ambulatory again, and return home. Abdomen/Pelvis (CT 06/02/16)---> 1. Small hiatal hernia. No significant gastric distention. No bowel obstruction or free air. Mild constipation. 2. Small bilateral pleural effusions. Basilar atelectasis. Mild anasarca. 3. 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 Old right inferior pubic ramus fracture. Findings similar to plain film from November 2014. Bones are osteopenic. Postoperative right hemicolectomy. Subcutaneous air in the left chest wall and left abdominal wall. Called and spoke to Jacquie Johnson regarding endoscopy- procedure, risks, benefits and she would like to proceed. - Anemia, acute blood loss. 9.5/28.2. PPI. - Recent surgery for colon cancer. S/P Subtotal colectomy last month for colon cancer PLAN: - Plan for egd today - Obtain consents - NPO - PPI - Monitor HH - Transfuse as necessary - Supportive care - Further recommendations to follow based on results of above - Pt seen and examined by Dr. Carlson and myself and this note is written on his behalf (Renea Briceno) Physician Comments Seen and examined with Ms. Janak BUCKLEY, upper gi bleed. EGD today. Monitor labs. Thank you (Tonja Carlson MD) Renea Briceno Jun 03, 2016 11:40 Tonja Carlson MD Jun 03, 2016 11:43
[2016-06-03 12:20] VITALS: BP 209/94; PULSE 81; RESP 18; TEMP 97.8; O2SAT 95
[2016-06-03] MEDS ORDERED: PROPOFOL 200 MG/20 ML AMP IV ONE (12:45)
--- NOTE | 2016-06-03 12:56 | PD.PROCEDR ---
GI Procedure REFERRING PHYSICIAN Kevin PROCEDURE PERFORMED EGD with biopsy INDICATION FOR PROCEDURE Upper GI bleed PROCEDURE: The procedure, risks and benefits were discussed with Mr. Johnson and informed consent was obtained. Anesthesia sedated him with Diprivan. He was placed in the left lateral decubitus position. EGD: The Pentax videoscope was introduced through the oropharynx and advanced to the second portion of the duodenum under direct visualization. Retroflexion was performed in the stomach. FINDINGS: Esophagus this had multiple erosions and ulcerations from top to bottom consistent with erosive ulcerative esophagitis probably from reflux this was biopsied Stomach there was a moderately sized hiatal hernia there was punctate erythema in the antrum but no ulcerations or erosions the rest of the stomach was unremarkable antral biopsies were taken for further evaluation Duodenum the duodenal bulb and sweep had a nodular texture to it with some erythema and this was biopsied the rest of the duodenum was unremarkable ESTIMATED BLOOD LOSS: None SPECIMENS REMOVED: Esophageal gastric and duodenal biopsies COMPLICATIONS: None IMPRESSION: Erosive ulcerative esophagitis Hiatal hernia Antral gastritis Nodular duodenitis PLAN: Await biopsy Continue with PPI Continue with current supportive care Monitor labs and transfuse as needed EGD in 2 months Rick Boss MD Jun 03, 2016 12:56
[2016-06-03 14:01] VITALS: BP 217/96
[2016-06-03] MEDS: ENALAPRILAT 1.25 MG/ML VIAL IV PUSH PRN ×2 (14:03)
[2016-06-03 16:00] VITALS: BP 186/78; PULSE 84; RESP 20; TEMP 97.8; O2SAT 96
[2016-06-03 20:32] VITALS: BP 168/81; PULSE 75; RESP 17; TEMP 98.1; O2SAT 94
[2016-06-03] MEDS: TAMSULOSIN HCL 0.4 MG CAP PO SCH (21:00)
[2016-06-03] MEDS: DONEPEZIL HCL 5 MG TAB PO SCH (21:00)
[2016-06-04 00:27] VITALS: BP 183/88; PULSE 72; RESP 18; TEMP 97.3; O2SAT 93
[2016-06-04] MEDS: SODIUM CHLOR 0.9% 1000 ML INJ 1,000 ML IV SCH ×2 (00:30→13:50)
[2016-06-04 08:00] VITALS: BP 229/93; PULSE 67; RESP 20; TEMP 98.4; O2SAT 92
[2016-06-04 08:16] LABS: BICARBONATE 21.4 MEQ/L (21.0-32.0); POTASSIUM 3.2 MEQ/L (3.5-5.1)
[2016-06-04] MEDS: SERTRALINE HCL 50 MG TAB PO SCH (08:38)
[2016-06-04] MEDS: PRIMIDONE 50 MG TAB PO SCH ×2 (08:38→21:36)
[2016-06-04] MEDS: GABAPENTIN 300 MG CAP PO SCH ×3 (08:38→17:51)
[2016-06-04] MEDS: risperiDONE 0.25 MG TAB PO SCH ×2 (08:38→21:36)
[2016-06-04] MEDS: amLODIPine BESYLATE 5 MG TAB PO SCH (08:38)
[2016-06-04] MEDS: ENALAPRILAT 1.25 MG/ML VIAL IV PUSH PRN (08:43)
[2016-06-04] MEDS: PANTOPRAZOLE INJ 80 MG in SODIUM CHLORIDE 0.9% INJ 100 ML IV SCH ×3 (09:49→18:45)
[2016-06-04] MEDS ORDERED: GLUCAGON 1 MG/ML VIAL OTHER PRN (11:15)
[2016-06-04] MEDS ORDERED: POTASSIUM CHLORIDE 20 MEQ CONTROLLED RELEASE TAB PO ONE (11:15)
[2016-06-04] MEDS ORDERED: DEXTROSE 50% IN WATER 50 ML VIAL(D50) IV PUSH PRN (11:15)
--- NOTE | 2016-06-04 11:19 | HHI.PR ---
Subjective Remarks resting comfortably with no distress. denies pain. Objective Vitals Vital Signs Date Time Temp Pulse Resp B/P Pulse Ox O2 Delivery O2 Flow Rate FiO2 06/04/16 08:00 98.4 67 20 229/93 92 06/04/16 00:27 97.3 72 18 183/88 93 06/03/16 20:32 98.1 75 17 168/81 94 06/03/16 16:00 97.8 84 20 186/78 96 06/03/16 14:01 217/96 06/03/16 13:15 63 16 216/98 96 06/03/16 13:05 63 16 216/98 95 06/03/16 12:53 98.9 65 16 212/96 95 06/03/16 12:20 97.8 81 18 209/94 95 I/O 06/03/16 06/03/16 06/03/16 06/04/16 06/04/16 06/04/16 07:00 15:00 23:00 07:00 15:00 23:00 Intake Total 50 ml Balance 50 ml Intake Other 50 ml Result Diagram: 06/03/16 0925 06/04/16 0723 Imaging Last Impressions Abdomen/Pelvis CT 06/02/16 0000 Signed Impressions: Service Date/Time: June 07:17 - CONCLUSION: 1. Small hiatal hernia. No significant gastric distention. No bowel obstruction or free air. Mild constipation. 2. Small bilateral pleural effusions. Basilar atelectasis. Mild anasarca. 3. 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 Old right inferior pubic ramus fracture. Findings similar to plain film from November 2014. Bones are osteopenic. Postoperative right hemicolectomy. Subcutaneous air in the left chest wall and left abdominal wall. Arthur Mixon MD Objective Remarks GENERAL:elderly male, in no apparent distress. CARDIOVASCULAR: Regular rate and regular rhythm without murmurs, gallops, or rubs. RESPIRATORY: Clear to auscultation. Breath sounds equal bilaterally. No wheezes , rales, or rhonchi. GASTROINTESTINAL: Abdomen soft, non-tender, nondistended. Normal, active bowel sounds- jaiden in place. MUSCULOSKELETAL: Extremities without clubbing, cyanosis, or edema. NEURO: demented Procedures none Medications and IVs Current Medications Sodium Chloride (NS 1000 ml Inj) 1,000 ml @ 1,000 mls/hr Q1H IV Last administered on 06/02/16 07:55; Start 06/02/16 at 06:39; Stop 06/02/16 at 07:38; Status DC IV Flush 2 ml 2 ml UNSCH PRN IVF FLUSH AFTER USING IV ACCESS; Start 06/02/16 at 06:45 Pantoprazole Sodium 80 mg/ Sodium Chloride 35 ml @ 420 mls/hr ONCE ONCE IV Last administered on 06/02/16 07:55; Start 06/02/16 at 06:45; Stop 06/02/16 at 06: 49; Status DC Pantoprazole Sodium 80 mg/ Sodium Chloride 100 ml @ 10 mls/hr Q10H IV Last administered on 06/04/16 09:49; Start 06/02/16 at 06:45 Sodium Chloride (NS 1000 ml Inj) 1,000 ml @ 75 mls/hr [id number] IV Last administered on 06/03/16 11:01; Start 06/02/16 at 08:30 Ondansetron HCl (Zofran Inj) 4 mg Q8HR PRN IV PUSH NAUSEA; Start 06/02/16 at 08: 30 Amlodipine Besylate (Norvasc) 5 mg DAILY PO Last administered on 06/04/16 08:38 ; Start 06/02/16 at 09:00 Donepezil HCl (Aricept) 10 mg HS PO Last administered on 06/02/16 20:39; Start 06/02/16 at 21:00 Gabapentin (Neurontin) 300 mg TID PO Last administered on 06/04/16 08:38; Start 06/02/16 at 09:00 Oxycodone/ Acetaminophen (Percocet 5-325 Mg) 1 tab Q4H PRN PO PAIN; Start 06/02 at 08:45 Primidone (Mysoline) 50 mg BID PO Last administered on 06/04/16 08:38; Start at 09:00 Risperidone (risperDAL) 0.25 mg Q12HR PO Last administered on 06/04/16 08:38; Start 06/02/16 at 09:00 Sertraline HCl (Zoloft) 75 mg DAILY PO Last administered on 06/04/16 08:38; Start 06/02/16 at 09:00 Tamsulosin HCl (Flomax) 0.4 mg HS PO Last administered on 06/02/16 20:39; Start 06/02/16 at 21:00 Miscellaneous (Pill Splitter) 1 ea UNSCH PRN OTHER SEE LABEL COMMENTS; Start at 09:15 Enalaprilat (Vasotec Inj) 1.25 mg Q8H PRN IV PUSH SBP>180, DBP>110 Last administered on 06/04/16 08:43; Start 06/02/16 at 11:30 Haloperidol Lactate (Haldol Inj) 2 mg ONCE ONCE IM Last administered on 20:37; Start 06/02/16 at 20:15; Stop 06/02/16 at 20:17; Status DC Propofol (Diprivan 200 Mg/20 ml Inj) 50 mg STK-MED ONCE IV ; Start 06/03/16 at 12:45; Stop 06/03/16 at 13:00; Status DC A/P Assessment and Plan A/P - GI bleed with recent colectomy s/p EGD with Erosive ulcerative esophagitis,Hiatal hernia,Antral gastritis and Nodular duodenitis continue PPI- f/u biopsy- f/u with GI. -mildly elevated troponin-trend stable- likely due to renal insufficiency- resume aspirin when ok with GI. -hypertension - not controlled- resume home meds- will monitor and adjust the regimen as needed. -renal insufficiency- chronic and at his baseline- will monitor -glucosuria- check A1c- accu-check with SSI -dementia- resume home meds soon -DVT prophylaxis with SCD's- no chemical prophylaxis due to GI bleed -DNR status per my discussion with the -palliative care consult appreciated. Discharge Planning dc to SNF within the next one-two days if stable with better BP control. Emanuel Pavon MD Jun 04, 2016 11:19
[2016-06-04] MEDS ORDERED: OXYC1TAB63 PO (11:21)
--- NOTE | 2016-06-04 11:30 | HHI.GIFU ---
Subjective Remarks Patient is resting in bed, denies nausea, hematemesis, vomiting, abdomen pain, melena or hematochezia. (Priscilla Boothe SHOP WORKER) Objective Vitals I&O Vital Signs Date Time Temp Pulse Resp B/P Pulse Ox O2 Delivery O2 Flow Rate FiO2 06/04/16 08:00 98.4 67 20 229/93 92 06/04/16 00:27 97.3 72 18 183/88 93 06/03/16 20:32 98.1 75 17 168/81 94 06/03/16 16:00 97.8 84 20 186/78 96 06/03/16 14:01 217/96 06/03/16 13:15 63 16 216/98 96 06/03/16 13:05 63 16 216/98 95 06/03/16 12:53 98.9 65 16 212/96 95 06/03/16 12:20 97.8 81 18 209/94 95 I/O 06/03/16 06/03/16 06/03/16 06/04/16 06/04/16 06/04/16 07:00 15:00 23:00 07:00 15:00 23:00 Intake Total 50 ml Balance 50 ml Intake Other 50 ml Laboratory Laboratory Tests Test 06/04/16 07:23 Sodium Level 147 Potassium Level 3.2 Chloride Level 115 Carbon Dioxide Level 21.4 Anion Gap 11 Blood Urea Nitrogen 30 Creatinine 2.04 Estimat Glomerular Filtration 31 Rate Random Glucose 135 Calcium Level 8.1 Imaging Last Impressions Abdomen/Pelvis CT 06/02/16 0000 Signed Impressions: Service Date/Time: June 07:17 - CONCLUSION: 1. Small hiatal hernia. No significant gastric distention. No bowel obstruction or free air. Mild constipation. 2. Small bilateral pleural effusions. Basilar atelectasis. Mild anasarca. 3. 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 Old right inferior pubic ramus fracture. Findings similar to plain film from November 2014. Bones are osteopenic. Postoperative right hemicolectomy. Subcutaneous air in the left chest wall and left abdominal wall. Arthur Mixon MD Physical Exam HEENT: normocephalic; atraumatic; no jaundice. Throat is clear. NECK: Neck is supple, no JVD, no lymphadenopathy. CHEST: Chest is clear to auscultation and percussion. CARDIAC: Regular rate and rhythm ABDOMEN: Soft, nondistended, nontender; no hepatosplenomegaly; bowel sounds are present in all four quadrants. EXTREMITIES: No clubbing, cyanosis, or edema. SKIN: Normal; no rash; no jaundice. WIRE WALKER: confused (Priscilla Boothe) Assessment and Plan Plan ASSESSMENT: - Upper GI Bleed, Coffee ground emesis. S/p EGD on (06/03/16)---->Erosive ulcerative esophagitis, Hiatal hernia, Antral gastritis, Nodular duodenitis, Bx pending Patient doing good, hgb stable, no signs of bleeding Abdomen/Pelvis (CT 06/02/16)---> 1. Small hiatal hernia. No significant gastric distention. No bowel obstruction or free air. Mild constipation. 2. Small bilateral pleural effusions. Basilar atelectasis. Mild anasarca. 3. 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 Old right inferior pubic ramus fracture. Findings similar to plain film from November 2014. Bones are osteopenic. Postoperative right hemicolectomy. Subcutaneous air in the left chest wall and left abdominal wall. - Anemia, acute blood loss. hgb stable PPI. - Recent surgery for colon cancer. S/P Subtotal colectomy last month for colon cancer PLAN: - CHAITANYA - Cont. PPI - Await bx results - EGD in 2 months - Okay to DC from GI stand point - F/u with GI in 2 weeks - Pt seen and examined by Dr. chang and myself and this note is written on his behalf (Priscilla Boothe) Physician Comments Patient seen and examined Agree with above Continue with current supportive care Monitor labs Continue with PPI Follow-up with GI post discharge We will sign off (Rick Chang MD) Priscilla Boothe Jun 04, 2016 11:30 Rick Chang MD Jun 04, 2016 16:33
[2016-06-04 12:00] VITALS: BP 147/95; PULSE 70; RESP 18; TEMP 97.1; O2SAT 97
[2016-06-04 13:01] LABS: HEMATOCRIT 27.7 % (39.0-51.0); MEAN CELL VOLUME 92.6 FL (80.0-100.0); MEAN CORPUSCULAR HEMOGLOBIN 31.2 PG (27.0-34.0); MEAN CORPUSCULAR HGB CONC 33.7 % (32.0-36.0); PLATELET COUNT 158 TH/MM3 (150-450); RED BLOOD COUNT 2.99 MIL/MM3 (4.50-5.90); RED CELL DISTRIBUTION WIDTH 15.8 % (11.6-17.2); REVIEW FLAG FINAL; WHITE BLOOD COUNT 6.8 TH/MM3 (4.0-11.0)
[2016-06-04] MEDS: hydrALAZINE HCL 50 MG TAB PO SCH ×2 (14:07→17:51)
[2016-06-04 16:00] VITALS: BP 148/88; PULSE 70; RESP 18; TEMP 98.1; O2SAT 97
[2016-06-04] MEDS: INSULIN ASPART SUPPLEMENTAL SCALE SQ SCH ×2 (16:00→21:58)
[2016-06-04 20:46] VITALS: BP 151/68; PULSE 70; RESP 18; TEMP 95.8; O2SAT 95
[2016-06-04] MEDS: PANTOPRAZOLE SOD 40 MG DELAYED RELEASE TAB PO SCH (21:36)
[2016-06-04] MEDS: TAMSULOSIN HCL 0.4 MG CAP PO SCH (21:36)
[2016-06-04] MEDS: LABETALOL HCL 100 MG TAB PO SCH (21:36)
[2016-06-04] MEDS: DONEPEZIL HCL 5 MG TAB PO SCH (21:36)
[2016-06-04] MEDS: cloNIDine HCL 0.1 MG TAB PO SCH (21:36)
[2016-06-05] VITALS (7 sets, daily range): BP systolic 90–187; BP diastolic 55–86; PULSE 56–123; RESP 18–20; TEMP 95.8–97.6; O2SAT 92–98
[2016-06-05] MEDS: SODIUM CHLOR 0.9% 1000 ML INJ 1,000 ML IV SCH ×2 (03:10→16:25)
[2016-06-05] MEDS: INSULIN ASPART SUPPLEMENTAL SCALE SQ SCH ×3 (06:45→16:00)
[2016-06-05] MEDS: SERTRALINE HCL 50 MG TAB PO SCH (09:13)
[2016-06-05] MEDS: cloNIDine HCL 0.1 MG TAB PO SCH (09:13)
[2016-06-05] MEDS: LABETALOL HCL 100 MG TAB PO SCH (09:13)
[2016-06-05] MEDS: risperiDONE 0.25 MG TAB PO SCH (09:13)
[2016-06-05] MEDS: hydrALAZINE HCL 50 MG TAB PO SCH ×2 (09:13→14:08)
[2016-06-05] MEDS: PRIMIDONE 50 MG TAB PO SCH (09:13)
[2016-06-05] MEDS: GABAPENTIN 300 MG CAP PO SCH ×2 (09:13→14:08)
[2016-06-05] MEDS: amLODIPine BESYLATE 5 MG TAB PO SCH (09:13)
[2016-06-05] MEDS: PANTOPRAZOLE SOD 40 MG DELAYED RELEASE TAB PO SCH (09:13)
--- NOTE | 2016-06-05 09:41 | HHI.PR ---
Subjective Remarks in no acute distress. denies pain. d/w the RN and no acute issues over night. Objective Vitals Vital Signs Date Time Temp Pulse Resp B/P Pulse Ox O2 Delivery O2 Flow Rate FiO2 06/05/16 08:00 96.3 56 18 187/86 97 06/05/16 04:29 95.8 71 20 141/67 94 06/05/16 00:06 96.1 123 20 136/64 92 06/04/16 20:46 95.8 70 18 151/68 95 06/04/16 16:00 98.1 70 18 148/88 97 06/04/16 12:00 97.1 70 18 147/95 97 I/O 06/04/16 06/04/16 06/04/16 06/05/16 06/05/16 06/05/16 07:00 15:00 23:00 07:00 15:00 23:00 Intake Total 240 ml Balance 240 ml Intake Oral 240 ml # Voids 1 # Bowel Movements 0 Result Diagram: 06/04/16 1215 06/04/16 0723 Imaging Last Impressions Abdomen/Pelvis CT 06/02/16 0000 Signed Impressions: Service Date/Time: June 07:17 - CONCLUSION: 1. Small hiatal hernia. No significant gastric distention. No bowel obstruction or free air. Mild constipation. 2. Small bilateral pleural effusions. Basilar atelectasis. Mild anasarca. 3. 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 Old right inferior pubic ramus fracture. Findings similar to plain film from November 2014. Bones are osteopenic. Postoperative right hemicolectomy. Subcutaneous air in the left chest wall and left abdominal wall. Arthur Mixon MD Objective Remarks GENERAL:elderly male, in no apparent distress. CARDIOVASCULAR: Regular rate and regular rhythm without murmurs, gallops, or rubs. RESPIRATORY: Clear to auscultation. Breath sounds equal bilaterally. No wheezes , rales, or rhonchi. GASTROINTESTINAL: Abdomen soft, non-tender, nondistended. Normal, active bowel sounds- jaiden in place. MUSCULOSKELETAL: Extremities without clubbing, cyanosis, or edema. NEURO: demented Procedures none Medications and IVs Current Medications Sodium Chloride (NS 1000 ml Inj) 1,000 ml @ 1,000 mls/hr Q1H IV Last administered on 06/02/16 07:55; Start 06/02/16 at 06:39; Stop 06/02/16 at 07:38; Status DC IV Flush 2 ml 2 ml UNSCH PRN IVF FLUSH AFTER USING IV ACCESS; Start 06/02/16 at 06:45 Pantoprazole Sodium 80 mg/ Sodium Chloride 35 ml @ 420 mls/hr ONCE ONCE IV Last administered on 06/02/16 07:55; Start 06/02/16 at 06:45; Stop 06/02/16 at 06: 49; Status DC Pantoprazole Sodium 80 mg/ Sodium Chloride 100 ml @ 10 mls/hr Q10H IV Last administered on 06/04/16 09:49; Start 06/02/16 at 06:45; Stop 06/04/16 at 19:27; Status DC Sodium Chloride (NS 1000 ml Inj) 1,000 ml @ 75 mls/hr [id number] IV Last administered on 06/04/16 13:50; Start 06/02/16 at 08:30 Ondansetron HCl (Zofran Inj) 4 mg Q8HR PRN IV PUSH NAUSEA; Start 06/02/16 at 08: 30 Amlodipine Besylate (Norvasc) 5 mg DAILY PO Last administered on 06/05/16 09:13 ; Start 06/02/16 at 09:00 Donepezil HCl (Aricept) 10 mg HS PO Last administered on 06/04/16 21:36; Start 06/02/16 at 21:00 Gabapentin (Neurontin) 300 mg TID PO Last administered on 06/05/16 09:13; Start 06/02/16 at 09:00 Oxycodone/ Acetaminophen (Percocet 5-325 Mg) 1 tab Q4H PRN PO PAIN; Start 06/02 at 08:45 Primidone (Mysoline) 50 mg BID PO Last administered on 06/05/16 09:13; Start at 09:00 Risperidone (risperDAL) 0.25 mg Q12HR PO Last administered on 06/05/16 09:13; Start 06/02/16 at 09:00 Sertraline HCl (Zoloft) 75 mg DAILY PO Last administered on 06/05/16 09:13; Start 06/02/16 at 09:00 Tamsulosin HCl (Flomax) 0.4 mg HS PO Last administered on 06/04/16 21:36; Start 06/02/16 at 21:00 Miscellaneous (Pill Splitter) 1 ea UNSCH PRN OTHER SEE LABEL COMMENTS; Start at 09:15 Enalaprilat (Vasotec Inj) 1.25 mg Q8H PRN IV PUSH SBP>180, DBP>110 Last administered on 06/04/16 08:43; Start 06/02/16 at 11:30 Haloperidol Lactate (Haldol Inj) 2 mg ONCE ONCE IM Last administered on 20:37; Start 06/02/16 at 20:15; Stop 06/02/16 at 20:17; Status DC Propofol (Diprivan 200 Mg/20 ml Inj) 50 mg STK-MED ONCE IV ; Start 06/03/16 at 12:45; Stop 06/03/16 at 13:00; Status DC Clonidine (Catapres) 0.1 mg BID PO Last administered on 06/05/16 09:13; Start 06/04/16 at 21:00 Hydralazine HCl (Apresoline) 100 mg TID PO Last administered on 06/05/16 09:13 ; Start 06/04/16 at 13:00 Labetalol HCl (Trandate) 100 mg BID PO Last administered on 06/05/16 09:13; Start 06/04/16 at 21:00 Potassium Chloride (KCl) 20 meq ONCE ONCE PO Last administered on 06/04/16 11: 38; Start 06/04/16 at 11:15; Stop 06/04/16 at 11:16; Status DC Dextrose (D50w (Vial) Inj) 25 ml UNSCH PRN IV PUSH HYPOGLYCEMIA-SEE COMMENTS; Start 06/04/16 at 11:15 Glucagon (Glucagon Inj) 1 mg UNSCH PRN OTHER HYPOGLYCEMIA-SEE COMMENTS; Start 06/04/16 at 11:15 Insulin Aspart (NovoLOG SUPPLEMENTAL SCALE) 1 ACHS SLIDING SCALE SQ Last administered on 06/04/16 21:58; Start 06/04/16 at 16:00 Pantoprazole Sodium (Protonix) 40 mg Q12HR PO Last administered on 06/05/16t 09: 13; Start 06/04/16 at 21:00 A/P Assessment and Plan A/P - GI bleed with recent colectomy s/p EGD with Erosive ulcerative esophagitis,Hiatal hernia,Antral gastritis and Nodular duodenitis aspirin on hold- continue PPI- f/u biopsy- f/u with GI as outpatient. -mildly elevated troponin-trend stable- likely due to renal insufficiency- -hypertension - overall better controlled- resume home meds- will monitor and adjust the regimen as needed. -renal insufficiency- chronic and at his baseline- will monitor -history of diabetes in the past- now off hypoglycemic agents- A1c pending- accu -check with SSI -dementia- resumed home meds soon -DVT prophylaxis with SCD's- no chemical prophylaxis due to GI bleed -DNR status per my discussion with the -palliative care consult appreciated. Discharge Planning dc to SNF later today if BP stable. see med list. f/u; pcp and GI. d/w the RN. Emanuel Pavon MD Jun 05, 2016 09:41
[2016-06-05] MEDS ORDERED: PANT40TA3 PO (09:42)
--- NOTE | 2016-06-05 09:43 | HHI.DCPOC ---
Discharge Care Plan Diagnosis: (1) hematemesis, GI bleeding Your Health Problems Are: Bleeding Tendency Goals to Promote Your Health * To prevent worsening of your condition and complications * To maintain your health at the optimal level Directions to Meet Your Goals Take your medications as prescribed Follow your dietary instruction Follow activity as directed Keep your appointments as scheduled Take your immunizations and boosters as scheduled If your symptoms worsen call your PCP, if no PCP go to Urgent Care Center or Emergency Room Smoking is Dangerous to Your Health. Avoid second hand smoke Call the 24-hour hour crisis hotline for domestic abuse at Emanuel Pavon MD Jun 05, 2016 09:43
--- NOTE | 2016-06-05 09:43 | HHI.DS ---
Discharge Summary Admission Date Jun 02, 2016 at 08:36 Discharge Date: Jun 05, 2016 Admitting Diagnosis upper gi bleed (1) GI bleed ICD Code: K92.2 Diagnosis: Principal Procedures none Brief History - From Admission patient is a 86 y/o male with severe dementia- s/p recent colectomy was sent back to ER with coffee-ground emesis- information is limited due to severe dementia. at the time of my evaluation he was in no acute distress. opened the eyes to calling his name but otherwise couldn't get any further information. CBC/BMP: 06/04/16 1215 06/04/16 0723 Significant Findings Laboratory Tests Test 06/02/16 06/02/16 06/03/16 06/03/16 10:55 19:02 02:35 09:25 Urine Protein 100 mg/dL (NEG-TRACE) Urine Glucose (UA) 150 mg/dL (NEG) Urine Ketones TRACE mg/dL (NEG) Urine Bacteria RARE /hpf (NONE) Hemoglobin 9.9 GM/DL 9.2 GM/DL 9.5 GM/DL (13.0-17.0) (13.0-17.0) (13.0-17.0) Hematocrit 29.4 % 27.0 % 28.2 % (39.0-51.0) (39.0-51.0) (39.0-51.0) Troponin I 0.19 NG/ML 0.16 NG/ML (0.02-0.05) (0.02-0.05) Test 06/03/16 06/04/16 06/04/16 09:26 07:23 12:15 Sodium Level 148 MEQ/L 147 MEQ/L (136-145) (136-145) Potassium Level 3.2 MEQ/L 3.2 MEQ/L (3.5-5.1) (3.5-5.1) Chloride Level 116 MEQ/L 115 MEQ/L (98-107) (98-107) Blood Urea Nitrogen 30 MG/DL (7-18) 30 MG/DL (7-18) Creatinine 2.05 MG/DL 2.04 MG/DL (0.60-1.30) (0.60-1.30) Estimat Glomerular Filtration 31 ML/MIN (>89) 31 ML/MIN (>89) Rate Random Glucose 138 MG/DL 135 MG/DL (74-106) (74-106) Calcium Level 8.2 MG/DL 8.1 MG/DL (8.5-10.1) (8.5-10.1) Red Blood Count 2.99 MIL/MM3 (4.50-5.90) Hemoglobin 9.3 GM/DL (13.0-17.0) Hematocrit 27.7 % (39.0-51.0) Imaging Last Impressions Abdomen/Pelvis CT 06/02/16 0000 Signed Impressions: Service Date/Time: June 07:17 - CONCLUSION: 1. Small hiatal hernia. No significant gastric distention. No bowel obstruction or free air. Mild constipation. 2. Small bilateral pleural effusions. Basilar atelectasis. Mild anasarca. 3. 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 Old right inferior pubic ramus fracture. Findings similar to plain film from November 2014. Bones are osteopenic. Postoperative right hemicolectomy. Subcutaneous air in the left chest wall and left abdominal wall. Arthur Mixon MD PE at Discharge GENERAL:elderly male, in no apparent distress. CARDIOVASCULAR: Regular rate and regular rhythm without murmurs, gallops, or rubs. RESPIRATORY: Clear to auscultation. Breath sounds equal bilaterally. No wheezes , rales, or rhonchi. GASTROINTESTINAL: Abdomen soft, non-tender, nondistended. Normal, active bowel sounds- jaiden in place. MUSCULOSKELETAL: Extremities without clubbing, cyanosis, or edema. NEURO: demented Hospital Course - GI bleed with recent colectomy s/p EGD with Erosive ulcerative esophagitis,Hiatal hernia,Antral gastritis and Nodular duodenitis aspirin on hold- continue PPI- f/u biopsy- f/u with GI as outpatient. -mildly elevated troponin-trend stable- likely due to renal insufficiency- -hypertension - not controlled- resume home meds- will monitor and adjust the regimen as needed. -renal insufficiency- chronic and at his baseline- will monitor -history of diabetes in the past- now off hypoglycemic agents- A1c pending- accu -check with SSI -dementia- resumed home meds soon -DVT prophylaxis with SCD's- no chemical prophylaxis due to GI bleed -DNR status per my discussion with the -palliative care consult appreciated. Pt Condition on Discharge: Fair Discharge Disposition: Discharge to SNF Discharge Time: <= 30 minutes Discharge Instructions DIET: Follow Instructions for: Heart Healthy Diet, Diabetic Diet Activities you can perform: Regular-No Restrictions Follow up Referrals: Gastroenterology PCP Follow-up New Medications: Pantoprazole (Pantoprazole) 40 Mg Tab 40 MG PO Q12HR ppi Days 30 Ref 0 TAB Continued Medications: Amlodipine (Amlodipine) 5 Mg Tab 5 MG PO DAILY Blood Pressure Management #30 Ref 0 TAB Atorvastatin (Atorvastatin) 20 Mg Tab 20 MG PO HS Cholesterol Management #30 Ref 0 TAB Calcitriol (Calcitriol) 0.25 Mcg Cap 0.25 MCG PO DAILY Calcium Supplement #30 Ref 0 CAP Clonidine (Clonidine) 0.1 Mg Tab 0.1 MG PO BID Blood Pressure Management #60 Ref 0 TAB Diphenhydramine HCl (Sleep) (Diphenhydramine HCl) 50 Mg Tab 25 MG PO DAILY Donepezil (Donepezil) 10 Mg Tab 10 MG PO HS Dementia #30 Ref 0 TAB Gabapentin (Gabapentin) 300 Mg Cap 300 MG PO TID #90 Ref 0 CAP Hydralazine (Hydralazine) 50 Mg Tab 100 MG PO TID Take with a meal Blood Pressure Management Ref 0 TAB Labetalol (Labetalol) 100 Mg Tab 100 MG PO BID Blood Pressure Management Ref 0 TAB Oxycodone-Acetaminophen (Oxycodone-Acetaminophen) 5-325 mg Tab 1 TAB PO Q4H PRN PAIN #15 Ref 0 TAB (This prescription has been renewed) Primidone (Primidone) 50 Mg Tab 50 MG PO BID Control Seizures #60 Ref 0 TAB Risperidone (Risperidone) 0.25 Mg Tab 0.25 MG PO Q12HR #60 Ref 0 TAB Sertraline (Sertraline) 50 Mg Tab 75 MG PO DAILY #30 Ref 0 TAB Tamsulosin (Tamsulosin) 0.4 Mg Cap 0.4 MG PO HS Manage Prostate Problems #30 Ref 0 CAP Discontinued Medications: Aspirin DR (Aspirin 81) 81 Mg Tabdr 81 MG PO DAILY Ref 0 TAB Emanuel Pavon MD Jun 05, 2016 09:43
[2016-06-05 10:12] LABS: HEMOGLOBIN A1a 1.1 %; HEMOGLOBIN A1b 1.9 %; HEMOGLOBIN Ao 82.5 %; HEMOGLOBIN LA1C 2.7 %; HEMOGLOBIN P3 6.6 %
[2016-06-05] MEDS ORDERED: POTASSIUM CHLORIDE 10 MEQ CONTROLLED RELEASE TAB PO ONE (11:00)
== END 2016-06-05 17:56 | DRG 378 ==
LOC: NEPC 05:55 → NEDA 08:36 → N05A 13:22 → N05B 20:46
PROVIDERS: ADMIT Internal Medicine; ATTEND Internal Medicine
PROC: 0DB68ZX Excision of Stomach, Via Natural or Artificial Opening Endoscopic, Diagnostic (ICD-10-PCS; 2016-06-03)
PROC: 0DB58ZX Excision of Esophagus, Via Natural or Artificial Opening Endoscopic, Diagnostic (ICD-10-PCS; 2016-06-03)
PROC: 0DB98ZX Excision of Duodenum, Via Natural or Artificial Opening Endoscopic, Diagnostic (ICD-10-PCS; principal; 2016-06-03 12:25)
DX: K92.0 Hematemesis (principal); D62 Acute posthemorrhagic anemia; J90 Pleural effusion, not elsewhere classified; E11.22 Type 2 diabetes mellitus with diabetic chronic kidney disease; K22.10 Ulcer of esophagus without bleeding; F03.90 Unspecified dementia, unspecified severity, without behavioral disturbance, psychotic disturbance, mood disturbance, and anxiety; J98.11 Atelectasis; I12.9 Hypertensive chronic kidney disease with stage 1 through stage 4 chronic kidney disease, or unspecified chronic kidney disease; N18.9 Chronic kidney disease, unspecified; E78.5 Hyperlipidemia, unspecified; I25.10 Atherosclerotic heart disease of native coronary artery without angina pectoris; I25.2 Old myocardial infarction; K21.9 Gastro-esophageal reflux disease without esophagitis; K27.9 Peptic ulcer, site unspecified, unspecified as acute or chronic, without hemorrhage or perforation; K29.60 Other gastritis without bleeding; K29.80 Duodenitis without bleeding; K44.9 Diaphragmatic hernia without obstruction or gangrene; K59.00 Constipation, unspecified; M24.7 Protrusio acetabuli; Z96.641 Presence of right artificial hip joint; Z85.828 Personal history of other malignant neoplasm of skin; F32.9 Major depressive disorder, single episode, unspecified; Z51.5 Encounter for palliative care; Z66 Do not resuscitate; Z85.038 Personal history of other malignant neoplasm of large intestine
CPT/HCPCS: 74176; 76937; 80048; 80053; 81001; 82948; 83036; 83690; 84132; 84484; 85014; 85018; 85025; 85027; 85610; 86850; 86900; 86901; 88305; 88312; 93005; 96365; C9113; J1630; J1815; J7030

== ENCOUNTER 2016-06-09 00:42 | Emergency (ER) | payer MEDICARE ==
[~2016-06-09] VITALS: Ht 180.3 cm; Wt 80.0 kg
[~2016-06-09 00:42] MED LIST changes: -1-ME1LIQ OR; +AMLO5TAB2 PO; -ASPI325T PO; +ATOR20TA15 PO; +CLON0.1T PO; -DIPH25 PO; +DIPH50TA3 PO; -DONE10TA14; +DONE10TA7 PO; -GABA100C4 PO; +GABA300C5 PO; -HYDR-3533 PO; +LABE100T2 PO; -LIPI80TA16 PO; -NITR0.4S SL; -OMEG100010; +OXYC1TAB63 PO; +PANT40TA3 PO; +PRIM50TA5 PO; -PROBCAP4 PO; +RISP0.252 PO; +SERT-132 PO; -SERT50 PO; +TAMS0.4C4 PO; -TAMS0.4C67 PO; -TRAM50TA PO; -VITA10002 PO; -[UNRECOGNIZED DRUG - CODE] SQ
[2016-06-09 00:57] VITALS: BP 70/40; PULSE 117; RESP 16; O2SAT 94
[2016-06-09] MEDS ORDERED: LORazepam 2 MG/ML VIAL IV PUSH ONE (01:00)
[2016-06-09] MEDS ORDERED: MORPHINE SULFATE 8 MG/ML INJ IV PUSH ONE (01:00)
[2016-06-09 01:04] LABS: I-STAT POTASSIUM 4.5 MMOL/L (3.5-4.9)
--- NOTE | 2016-06-09 01:46 | PD ---
HPI Chief Complaint: STEMI Alert Time Seen by Provider: 00:50 Travel History International Travel<30 days: No Contact w/Intl Traveler<30days: No Traveled to known affect area: No History of Present Illness HPI The patient's 86 years old. He comes from a rehabilitation facility. Evidently he was short of breath all day. EMS reports his oxygen saturation was in the 70s on scene. The patient became unresponsive upon EMS arrival. GCS reported to be 3. Patient became asystolic en route. ACLS protocol was initiated including epinephrine 3 times as well as one episode of ventricular defibrillation as well. An EKG was performed en route revealing ST elevation HI in the precordial leads. DNR status unknown to EMS upon their arrival. History limited as the patient was unresponsive upon arrival. STEMI alert activated. Patient was intubated while in extremis. PFSH Past Medical History Arthritis: Yes (HANDS) Asthma: No Blood Disorders: No Heart Rhythm Problems: No Cancer: Yes (SKIN) Cardiovascular Problems: Yes (S/P HI--STENTS x1) High Cholesterol: No Chest Pain: No Congestive Heart Failure: No COPD: No Diabetes: Yes (borderline) Patient Takes Glucophage: No (unknown) Diminished Hearing: No Endocrine: Yes GERD: No Genitourinary: No Hepatitis: No Hiatal Hernia: No Hypertension: Yes Immune Disorder: No Kidney Stones: No Musculoskeletal: Yes (arthritis in the hands ) Neurologic: No Psychiatric: Yes (zoloft taken for anxiety depression) Reproductive: No Respiratory: No Myocardial Infarction: No Renal Failure: No Sleep Apnea: No Thyroid Disease: No Ulcer: No Tetanus Vaccination: Unknown Past Surgical History Abdominal Surgery: Yes (LAP. VIKTORIA, APPY) AICD: No Appendectomy: No Body Medical Devices: x2 stents, right hip Cardiac Surgery: Yes (cardiac stent ) Cholecystectomy: Yes Ear Surgery: No Endocrine Surgery: No Eye Surgery: No Genitourinary Surgery: Yes (stent placed near the right kidney) Gynecologic Surgery: No Joint Replacement: Yes (RIGHT HIP) Oral Surgery: Yes (tonsillectomy) Pacemaker: No Thoracic Surgery: No Tonsillectomy: Yes Other Surgery: Yes (HEMICOLECTOMY FOR NEOPLASM ) Social History Alcohol Use: Yes (SOCIALLY / BEER) Tobacco Use: No Substance Use: No Allergies-Medications (Allergen,Severity, Reaction): Coded Allergies: Penicillin (Verified Allergy, Severe, 06/02/16) unknown reaction Dyazide (Verified Allergy, Unknown, UNKNOWN, 06/02/16) Uncoded Allergies: DYASIDE (Allergy, Intermediate, unknown, 05/21/15) Reported Meds & Prescriptions Reported Meds & Active Scripts Active Pantoprazole (Pantoprazole Sodium) 40 Mg Tab 40 Mg PO Q12HR 30 Days Oxycodone-Acetaminophen 5-325 mg Tab 1 Tab PO Q4H PRN Reported Labetalol (Labetalol HCl) 100 Mg Tab 100 Mg PO BID Hydralazine (Hydralazine HCl) 50 Mg Tab 100 Mg PO TID Take with a meal Gabapentin 300 Mg Cap 300 Mg PO TID Sertraline (Sertraline HCl) 50 Mg Tab 75 Mg PO DAILY Clonidine (Clonidine HCl) 0.1 Mg Tab 0.1 Mg PO BID Diphenhydramine HCl (Diphenhydramine HCl (Sleep)) 50 Mg Tab 25 Mg PO DAILY Primidone 50 Mg Tab 50 Mg PO BID Calcitriol 0.25 Mcg Cap 0.25 Mcg PO DAILY Amlodipine (Amlodipine Besylate) 5 Mg Tab 5 Mg PO DAILY Donepezil 10 Mg Tab 10 Mg PO HS Tamsulosin (Tamsulosin HCl) 0.4 Mg Cap 0.4 Mg PO HS Risperidone 0.25 Mg Tab 0.25 Mg PO Q12HR Atorvastatin (Atorvastatin Calcium) 20 Mg Tab 20 Mg PO HS Review of Systems ROS Limitations: Clinical Condition, Uncooperative Physical Exam Narrative GENERAL: 86 yo M, GCS 3 SKIN: Warm and dry. HEAD: Atraumatic. Normocephalic. EYES: Sluggish response to light. Equal response to light. ENT: No nasal bleeding or discharge. Mucous membranes pink and moist. NECK: Trachea midline. No JVD. CARDIOVASCULAR: Palpable pulse upon arrival at the radial artery and the femoral artery. RESPIRATORY: Respiratory rate about 10 breaths per minute. GASTROINTESTINAL: Abdomen soft, non-tender, nondistended. Hepatic and splenic margins not palpable. MUSCULOSKELETAL: No obvious deformities. No clubbing. No cyanosis. No edema. NEUROLOGICAL: GCS 3 PSYCHIATRIC: Unable to assess. Data Data Last Documented VS Vital Signs Date Time Temp Pulse Resp B/P Pulse Ox O2 Delivery O2 Flow Rate FiO2 06/09/16 00:57 117 16 70/40 94 Orders Morphine Inj (Morphine Inj) (06/09/16 01:00) Lorazepam Inj (Ativan Inj) (06/09/16 01:00) I-Stat Creatinine (06/09/16 00:48) I-Stat Profile (06/09/16 00:48) Labs Laboratory Tests Test 06/09/16 00:48 Bedside Hemoglobin 11.2 G/DL Bedside Hematocrit 33.0 % Bedside Sodium 137 MMOL/L Bedside Potassium 4.5 MMOL/L Bedside Chloride 106 MMOL/L Bedside Blood Urea Nitrogen 41 MG/DL Bedside Creatinine 3.3 MG/DL Bedside Glucose 319 MG/DL MDM Medical Decision Making Medical Screen Exam Complete: Yes Emergency Medical Condition: Yes Medical Record Reviewed: Yes Differential Diagnosis Cardiopulmonary arrest, respiratory arrest, myocardial infarction Narrative Course Patient at 0106. confirmed patient was a DNR prior to time of expiration. STEMI alert canceled due to DNR status. Critical Care Narrative Aggregate critical care time was 35 minutes. Time to perform other separately billable procedures was not included in the critical care time. My time did not include minutes spent treating any other patients simultaneously or on activities that did not directly contribute to the patient's treatment. The services I provided to this patient were to treat and/or prevent clinically significant deterioration that could result in: asphyxiation I provided critical care services requiring my management, as noted below: Chart data review, documentation time, medication orders and management, vital sign assessments/reviewing monitor data, ordering and reviewing lab tests, ordering and interpreting/reviewing x-rays and diagnostic studies, care of the patient and discussion of the patient with the admitting physicians. Diagnosis Primary Impression: Cardiopulmonary arrest Additional Impression: Additional Instructions: Not Applicable Disposition: 20 Condition: Ozzie Mcneil MD Jun 09, 2016 01:46
[2016-06-09] MEDS ORDERED: SODIUM BICARBONATE 8.4% INJ 50 MEQ/50 ML SYR IV PUSH ONE (02:00)
[2016-06-09] MEDS ORDERED: CALCIUM CHLORIDE 10% SOLN 1 GRAM/10 ML SYR IV PUSH ONE (02:00)
[2016-06-09] MEDS ORDERED: EPINEPHrine HCL (1:1000) 1 MG/ML VIAL IV PUSH ONE (02:00)
[2016-06-09] MEDS ORDERED: ATROPINE SULFATE 1 MG/10 ML SYRINGE IV PUSH ONE (02:00)
[2016-06-09] MEDS ORDERED: SODIUM BICARBONATE 8.4% INJ 50 MEQ/50 ML SYR IV ONE ×2 (05:00→11:30)
--- NOTE | 2016-06-09 08:11 | EKG ---
Date Performed: 06/09/2016 Time Performed: 00:49:48 PTAGE: 86 years EKG: Marked baseline artifact obscures underlying rhythm Wide-complex bradycardia I cannot accur ately compare rhythm PREVIOUS TRACING : 06/02/2016 06.02 DOCTOR: Derek Olvera Interpretating Date/Time 06/09/2016 08:10:20
--- NOTE | 2016-06-09 08:11 | EKG ---
Date Performed: 06/09/2016 Time Performed: 00:46:35 PTAGE: 86 years EKG: Baseline artifact present with unclear underlying rhythm and wide complex bradycardia NO PREVIOUS TRACING DOCTOR: Derek Olvera Interpretating Date/Time 06/09/2016 08:10:45
[2016-06-09] MEDS ORDERED: CALCIUM CHLORIDE 10% SOLN 13.6 MEQ/10 ML SYR IV ONE (11:30)
[2016-06-09] MEDS ORDERED: ATROPINE SULFATE 1 MG/10 ML SYRINGE IV ONE (11:30)
[2016-06-09] MEDS ORDERED: EPINEPHrine HCL (1:10,000) 1 MG/10 ML SYRINGE IV ONE (11:30)
== END 2016-06-09 01:48 | disposition expired ==
LOC: NEPE 00:42
DX: I46.9 Cardiac arrest, cause unspecified (principal); I10 Essential (primary) hypertension; R00.1 Bradycardia, unspecified; R73.03 Prediabetes; Z87.39 Personal history of other diseases of the musculoskeletal system and connective tissue; Z85.828 Personal history of other malignant neoplasm of skin; Z86.79 Personal history of other diseases of the circulatory system; Z86.59 Personal history of other mental and behavioral disorders
CPT/HCPCS: 82435; 82565; 82947; 84132; 84295; 84520; 92950; 93005; 96374; 96375; 99291; J0171; J0461; J2060; J2270